=== PATIENT | female | born 1930 | race Caucasian/White ===

== ENCOUNTER 2017-07-01 11:18 | Emergency (ER) | payer MEDICARE, MEDICAID ==
--- NOTE | 2017-07-01 11:39 | ER Document Report ---
ED Medical Screen (RME) - General Chief Complaint: Mouth Injury Stated Complaint: FALL / LIP LACERATION Time Seen by Provider: 07/01/17 11:37 Notes: RME DISCLOSURE I have seen this patient as part of a Rapid Medical Evaluation and, if applicable, placed any initially appropriate orders. The patient will be seen and fully evaluated, including a full history and physical exam, by a provider ( in Main ED or Fast Track) when a room becomes available. 86-year-old female here with complaints of fall that occurred just prior to arrival. She states that she tripped on something and fell forward hitting her face. She had loss of consciousness for 2 minutes. Her tetanus is up-to-date. She complains of pain to her mouth and her left hand. TRAVEL OUTSIDE OF THE [place] IN LAST 30 DAYS: No - Related Data Allergies/Adverse Reactions: Sulfa (Sulfonamide Antibiotics) Allergy (Verified 07/01/17 11:20) tape Allergy (Intermediate, Uncoded 07/01/17 11:20) Past Medical History - Past Medical History Cardiac Medical History: Reports: Hx Hypertension Denies: Hx Coronary Artery Disease, Hx Heart Attack Pulmonary Medical History: Reports: Hx Asthma, Hx Bronchitis Denies: Hx COPD, Hx Pneumonia Neurological Medical History: Denies: Hx Cerebrovascular Accident, Hx Seizures Renal/ Medical History: Denies: Hx Peritoneal Dialysis GI Medical History: Reports: Hx Gastroesophageal Reflux Disease, Hx Hiatal Hernia Musculoskeltal Medical History: Reports Hx Arthritis - Back Past Surgical History: Reports: Hx Appendectomy. Denies: Hx Hysterectomy, Hx Pacemaker - Immunizations Hx Diphtheria, Pertussis, Tetanus Vaccination: No Physical Exam - Vital signs Vitals: Pulse Resp BP Pulse Ox 113 H 16 164/87 H 96 07/01/17 11:22 07/01/17 11:22 07/01/17 11:22 07/01/17 11:22 Course - Vital Signs Vital signs: Temp Pulse Resp BP Pulse Ox 113 H 16 164/87 H 96 07/01/17 11:22 07/01/17 11:22 07/01/17 11:22 07/01/17 11:22
--- NOTE | 2017-07-01 12:08 | RADIOLOGY REPORT (SQ) ---
EXAM DESCRIPTION: CT HEAD WITHOUT COMPLETED DATE/TIME: 07/01/2017 11:56 am REASON FOR STUDY: s/p fall w LOC 2 min COMPARISON: None. TECHNIQUE: Axial images acquired through the brain without intravenous contrast. Images reviewed wi th bone, brain and subdural windows. Images stored on PACS. All CT scanners at this facility use dose modulation, iterative reconstruction, and/or weight based d osing when appropriate to reduce radiation dose to as low as reasonably achievable (ALARA). [facility]: Dose Right [facility]: CareDose [facility]: Dose Right [facility]: Teradose 4D [facility]: Azimuth RADIATION DOSE: CT Rad equipment meets quality standard of care and radiation dose reduction techniq ues were employed. CTDIvol: 64.6 mGy. DLP: 1163 mGy-cm. mGy. LIMITATIONS: None. FINDINGS: VENTRICLES: Prominent. CEREBRUM: No masses. No hemorrhage. No midline shift. Areas of low density in the white matter mos t likely due to chronic micro-vascular ischemic change. No evidence for acute infarction. CEREBELLUM: No masses. No hemorrhage. No alteration of density. No evidence for acute infarction. EXTRAAXIAL SPACES: Mild age-related involutional change. No fluid collections. No masses. ORBITS AND GLOBE: No intra- or extraconal masses. Normal contour of globe without masses. CALVARIUM: No fracture. PARANASAL SINUSES: No fluid or mucosal thickening. SOFT TISSUES: No mass or hematoma. OTHER: No other significant finding. IMPRESSION: MILD CHRONIC CHANGES OF ATROPHY AND MICROVASCULAR ISCHEMIA. NO ACUTE PROCESS. EVIDENCE OF ACUTE STROKE: NO. TECHNICAL DOCUMENTATION: JOB ID: [id number] Quality ID # [id number]: Final reports with documentation of one or more dose reduction techniques (e.g., Au tomated exposure control, adjustment of the mA and/or kV according to patient size, use of iterative reconstruction technique) 2010 [employer]- All Rights Reserved Reading location - IP/workstation name: [email or web address]
--- NOTE | 2017-07-01 12:19 | RADIOLOGY REPORT (SQ) ---
EXAM DESCRIPTION: CT FACIAL AREA WITHOUT COMPLETED DATE/TIME: 07/01/2017 11:56 am REASON FOR STUDY: s/p fall; eval fracture COMPARISON: None. TECHNIQUE: Noncontrasted images through the facial bones and orbits windowed for bone and soft tissu e. Additional coronal and sagittal reconstructed images reviewed. All images stored on PACS. All CT scanners at this facility use dose modulation, iterative reconstruction, and/or weight based d osing when appropriate to reduce radiation dose to as low as reasonably achievable (ALARA). [facility]: Dose Right [facility]: CareDose [facility]: Dose Right [facility]: Teradose 4D [facility]: Smart [employer] RADIATION DOSE: CT Rad equipment meets quality standard of care and radiation dose reduction techniq ues were employed. CTDIvol: 30.4 mGy. DLP: 600 mGy-cm. mGy. LIMITATIONS: None. FINDINGS: FACIAL BONES: No fracture or bone lesion. ORBITS: Intact. No fracture. Symmetric intact globes and retroorbital soft tissues. PARANASAL SINUSES: Clear. No significant mucosal thickening, mass or fluid. No nasal polyps. Maxill evette sinus outlets are patent. SOFT TISSUES: No mass or edema. INFERIOR BRAIN: Limited view. No acute findings. OTHER: No other significant finding. IMPRESSION: No significant posttraumatic changes are identified. Other findings as noted above TECHNICAL DOCUMENTATION: JOB ID: [id number] Quality ID # [id number]: Final reports with documentation of one or more dose reduction techniques (e.g., Au tomated exposure control, adjustment of the mA and/or kV according to patient size, use of iterative reconstruction technique) 2010 [employer] All Rights Reserved Reading location - IP/workstation name: [email or web address]
[2017-07-01] MEDS ORDERED: LIDOCAINE 1% INJ-PF (10 MG/ML) 30 ML SDV INJ ONE (12:34)
--- NOTE | 2017-07-01 12:41 | RADIOLOGY REPORT (SQ) ---
EXAM DESCRIPTION: HAND LEFT 3 VIEWS COMPLETED DATE/TIME: 07/01/2017 12:17 pm REASON FOR STUDY: s/p fall; eval fracture COMPARISON: None. EXAM PARAMETERS: NUMBER OF VIEWS: Three views. TECHNIQUE: AP, lateral and oblique radiographic images acquired of the left hand. LIMITATIONS: None. FINDINGS: MINERALIZATION: Bony structures are somewhat osteopenic. BONES: No acute fracture or dislocation. No worrisome bone lesions. JOINTS: No effusions. SOFT TISSUES: No soft tissue swelling. No foreign body. OTHER: No other significant finding. IMPRESSION: NEGATIVE STUDY OF THE LEFT HAND. NO RADIOGRAPHIC EVIDENCE OF ACUTE INJURY. TECHNICAL DOCUMENTATION: JOB ID: [id number] [employer]- All Rights Reserved Reading location - IP/workstation name: [email or web address]
--- NOTE | 2017-07-01 14:05 | ER Document Report ---
ED Oral Problem - General Chief Complaint: Mouth Injury Stated Complaint: FALL / LIP LACERATION Time Seen by Provider: 07/01/17 11:37 Mode of Arrival: Ambulatory Information source: Patient Notes: Patient is an 86-year-old female who presents to the ER today for lip laceration , left hand pain to the fourth and fifth fingers, bruising to the face after tripping over something, falling while going into the grocery store just prior to arrival on sidewalk. Patient states that she broke her front teeth and that she thinks that is what cut her upper lip. Bleeding is controlled, with patient holding light gauze to the area. She did not lose consciousness. Patient denies being on any blood thinners. TRAVEL OUTSIDE OF THE [place] IN LAST 30 DAYS: No - Related Data Allergies/Adverse Reactions: Sulfa (Sulfonamide Antibiotics) Allergy (Verified 07/01/17 11:20) tape Allergy (Intermediate, Uncoded 07/01/17 11:20) Past Medical History - General Information source: Patient - Social History Smoking Status: Never Smoker Family History: Reviewed & Not Pertinent Patient has suicidal ideation: No Patient has homicidal ideation: No - Past Medical History Cardiac Medical History: Reports: Hx Hypertension Denies: Hx Coronary Artery Disease, Hx Heart Attack Pulmonary Medical History: Reports: Hx Asthma, Hx Bronchitis Denies: Hx COPD, Hx Pneumonia Neurological Medical History: Denies: Hx Cerebrovascular Accident, Hx Seizures Renal/ Medical History: Denies: Hx Peritoneal Dialysis GI Medical History: Reports: Hx Gastroesophageal Reflux Disease, Hx Hiatal Hernia Musculoskeltal Medical History: Reports Hx Arthritis - Back Past Surgical History: Reports: Hx Appendectomy, Hx Cardiac Surgery - Stents x2 , Hx Genitourinary Surgery - Bladder tact. Denies: Hx Hysterectomy, Hx Pacemaker - Immunizations Hx Diphtheria, Pertussis, Tetanus Vaccination: No Review of Systems - Review of Systems Constitutional: No symptoms reported EENT: No symptoms reported Cardiovascular: No symptoms reported Respiratory: No symptoms reported Gastrointestinal: No symptoms reported Genitourinary: No symptoms reported Female Genitourinary: No symptoms reported Musculoskeletal: No symptoms reported Skin: See HPI Hematologic/Lymphatic: No symptoms reported Neurological/Psychological: No symptoms reported Physical Exam - Vital signs Vitals: Pulse Resp BP Pulse Ox 113 H 16 164/87 H 96 07/01/17 11:22 07/01/17 11:22 07/01/17 11:22 07/01/17 11:22 - Notes Notes: PHYSICAL EXAMINATION: GENERAL: Uncomfortable appearing, anxious appearing, but in no acute distress. HEAD: Ecchymosis to left chin, left upper lip, normocephalic. EYES: Pupils equal round and reactive to light, extraocular movements intact, sclera anicteric, conjunctiva are normal. ENT: See skin below, 3 cm lip laceration, missing upper front teeth NECK: Normal range of motion, supple without lymphadenopathy LUNGS: CTAB and equal. No wheezes rales or rhonchi. HEART: Regular rate and rhythm without murmurs EXTREMITIES: tender to left fourth and fifth digits on left hand, normal range of motion, no tenderness to the wrist or forearm, no pitting edema. No cyanosis. NEUROLOGICAL: Cranial nerves grossly intact. Normal sensory/motor exams. PSYCH: Normal mood, normal affect. SKIN: Warm, Dry, normal turgor, 3 cm flap of the upper lip hanging, minimal bleeding, ecchymosis to left fourth and fifth digits, volar surface, no obvious swelling, Course - Re-evaluation Re-evalutation: 07/01/17 16:31 Laceration was repaired with dissolvable sutures, patient tolerated well, CT of the head, CT facial bones, left hand x-ray negative for any acute pathology. 07/01/17 16:32 - Vital Signs Vital signs: Temp Pulse Resp BP Pulse Ox 99 18 155/80 H 97 07/01/17 14:46 07/01/17 14:46 07/01/17 14:46 07/01/17 14:46 Procedures - Laceration/Wound Repair Mid- Face Time completed: 13:00 Wound length (cm): 3 Wound's Depth, Shape: Flap Laceration pre-procedure: Sterile PPE donned, Sterile drapes applied, Shur- Clens applied Anesthetic type: 1% Lidocaine Volume Anesthetic (mLs): 5 Wound explored: Clean Irrigated w/ Saline (mLs): 30 Wound Repaired With: Sutures Suture Size/Type: 5:0, Vicryl Number of Sutures: 5 Post-procedure NV exam normal: Yes Complications: No Discharge - Discharge Clinical Impression: Lip laceration Qualifiers: Encounter type: initial encounter Qualified Code(s): S01.511A - Laceration without foreign body of lip, initial encounter Injury of left hand Qualifiers: Encounter type: initial encounter Qualified Code(s): S69.92XA - Unspecified injury of left wrist, hand and finger(s), initial encounter Fall Qualifiers: Encounter type: initial encounter Qualified Code(s): W19.XXXA - Unspecified fall, initial encounter Condition: Stable Disposition: HOME, SELF-CARE Additional Instructions: Return immediately for any new or worsening symptoms. Follow up with primary care provider, call tomorrow to make followup appointment. Prescriptions: Cephalexin [Cephalexin 250 MG Tablet] 1 tab PO BID #10 tablet Oxycodone HCl 5 mg PO Q4 PRN #10 tablet PRN Reason: Referrals: ESTUARDO MEDINA MD [Primary Care Provider] - Follow up as needed
[2017-07-01 14:47] VITALS: BP 155/80
== END 2017-07-01 14:47 | disposition home or self-care (01) ==
LOC: ER 11:18
DX: S02.5XXA Fracture of tooth (traumatic), initial encounter for closed fracture (principal); S01.511A Laceration without foreign body of lip, initial encounter; S60.042A Contusion of left ring finger without damage to nail, initial encounter; S60.052A Contusion of left little finger without damage to nail, initial encounter; M79.645 Pain in left finger(s); W01.0XXA Fall on same level from slipping, tripping and stumbling without subsequent striking against object, initial encounter; Y93.89 Activity, other specified; Y92.480 Sidewalk as the place of occurrence of the external cause; I10 Essential (primary) hypertension; Z88.2 Allergy status to sulfonamides; Z91.048 Other nonmedicinal substance allergy status; J45.909 Unspecified asthma, uncomplicated
CPT/HCPCS: 99284; 73130; 70450; 70486; 12013; J3490

== ENCOUNTER 2018-10-10 18:21 | Emergency (ER) | payer MEDICARE, MEDICAID ==
[2018-10-10] MEDS ORDERED: ONDANSETRON 4 MG TAB.RAPDIS PO ONE (19:39)
--- NOTE | 2018-10-10 19:40 | ER Document Report ---
ED Medical Screen (RME) - General Chief Complaint: Near Syncope Stated Complaint: DIZZY Time Seen by Provider: 10/10/18 19:32 Primary Care Provider: ESTUARDO MEDINA MD [Primary Care Provider] - Follow up as needed Mode of Arrival: Wheelchair Information source: Patient Notes: Patient presents emergency department with complaints of feeling extremely dizzy when she walks. Patient reports that she stays quiet and sitting down she is okay. She reports at around 2:00 she walked in her kitchen became very extremely dizzy. She reports she became nauseated vomited and started sweating. Patient reports she just started taking medication for UTI, Macrobid, yesterday. Patient has history of cardiac disease with 2 stents placed. Patient complains of some nausea currently. Patient speaking in a clear voice respiratory rate even unlabored denies chest pain denies shortness of breath. I have greeted and performed a rapid initial assessment of this patient. A comprehensive ED assessment and evaluation of the patient, analysis of test results and completion of the medical decision making process will be conducted by additional ED providers. Dictation of this chart was performed using voice recognition software; therefore, there may be some unintended grammatical errors. TRAVEL OUTSIDE OF THE [place] IN LAST 30 DAYS: No - Related Data Allergies/Adverse Reactions: Sulfa (Sulfonamide Antibiotics) Allergy (Verified 10/10/18 18:45) tape Allergy (Intermediate, Uncoded 10/10/18 18:45) Past Medical History - Social History Chew tobacco use (# tins/day): No Frequency of alcohol use: None Drug Abuse: None - Past Medical History Cardiac Medical History: Reports: Hx Hypertension Denies: Hx Coronary Artery Disease, Hx Heart Attack Pulmonary Medical History: Reports: Hx Asthma, Hx Bronchitis Denies: Hx COPD, Hx Pneumonia Neurological Medical History: Denies: Hx Cerebrovascular Accident, Hx Seizures Renal/ Medical History: Denies: Hx Peritoneal Dialysis GI Medical History: Reports: Hx Gastroesophageal Reflux Disease, Hx Hiatal Hernia Musculoskeltal Medical History: Reports Hx Arthritis - Back Past Surgical History: Reports: Hx Appendectomy, Hx Cardiac Surgery - Stents x2, Hx Genitourinary Surgery - Bladder tact. Denies: Hx Hysterectomy, Hx Pacemaker - Immunizations Hx Diphtheria, Pertussis, Tetanus Vaccination: No Physical Exam - Vital signs Vitals: Temp Pulse Resp BP Pulse Ox 97.7 F 85 20 168/77 H 94 06/15/19 18:44 10/10/18 18:44 10/10/18 18:44 10/10/18 18:44 10/10/18 18:44 Course - Vital Signs Vital signs: Temp Pulse Resp BP Pulse Ox 97.7 F 85 20 168/77 H 94 10/10/18 18:44 10/10/18 18:44 10/10/18 18:44 10/10/18 18:44 10/10/18 18:44 Doctor's Discharge - Discharge Referrals: ESTUARDO MEDINA MD [Primary Care Provider] - Follow up as needed
--- NOTE | 2018-10-10 20:35 | RADIOLOGY REPORT (SQ) ---
EXAM DESCRIPTION: XR CHEST 2 VIEWS COMPLETED DATE/TME: 10/10/2018 19:38 CLINICAL HISTORY: dizzy, hx CAD COMPARISON: October 25, 2014 FINDINGS: Cardiac silhouette is within normal limits. Patient is rotated. There is atherosclerosis. There is no focal parenchymal or pleural disease. There is no acute osseous process visualized. IMPRESSION: No evidence of acute cardiopulmonary disease.
[2018-10-10 20:51] LABS: ABSOLUTE BASOPHILS # (AUTO) 0.1 10^3/uL (0.0-0.2); ABSOLUTE EOSINOPHILS # (AUTO) 0.2 10^3/uL (0.0-0.6); ABSOLUTE LYMPHOCYTES (AUTO) 1.4 10^3/uL (0.5-4.7); ABSOLUTE MONOCYTES (AUTO) 0.6 10^3/uL (0.1-1.4); ABSOLUTE NEUT (AUTO) 8.4 10^3/uL (1.7-8.2); BASOPHILS % (AUTO) 1.1 % (0-2); EOSINOPHILS % (AUTO) 1.8 % (0-6); HEMATOCRIT 39.2 % (36.0-47.0); HEMOGLOBIN 13.3 g/dL (12.0-15.5); LYMPHOCYTES % (AUTO) 13.2 % (13-45); MEAN CORPUSCULAR HEMOGLOBIN 31.2 pg (27.0-33.4); MEAN CORPUSCULAR HGB CONC 33.8 g/dL (32.0-36.0); MEAN CORPUSCULAR VOLUME 92 fl (80-97); MONOCYTES % (AUTO) 5.6 % (3-13); PLATELET COUNT 221 10^3/uL (150-450); RED BLOOD COUNT 4.25 10^6/uL (3.72-5.28); RED CELL DISTRIBUTION WIDTH 14.9 % (11.5-14.0); SEGMENTED NEUTROPHILS % (AUTO) 78.3 % (42-78); TOTAL CELLS COUNTED % (AUTO) 100 %; WHITE BLOOD COUNT 10.8 10^3/uL (4.0-10.5)
[2018-10-10 21:10] LABS: ALANINE AMINOTRANSFERASE 21 U/L (9-52); ALBUMIN 4.3 g/dL (3.5-5.0); ALKALINE PHOSPHATASE 121 U/L (38-126); ANION GAP 8 (5-19); ASPARTATE AMINO TRANSFERASE 24 U/L (14-36); BILIRUBIN,DIRECT 0.1 mg/dL (0.0-0.4); BILIRUBIN,TOTAL 0.3 mg/dL (0.2-1.3); BLOOD UREA NITROGEN 30 mg/dL (7-20); CALCIUM 10.2 mg/dL (8.4-10.2); CARBON DIOXIDE 28 mmol/L (22-30); CHLORIDE 101 mmol/L (98-107); CREATINE KINASE 58 U/L (30-135); GLUCOSE 109 mg/dL (75-110); POTASSIUM 4.5 mmol/L (3.6-5.0); SODIUM 136.8 mmol/L (137-145); TOTAL PROTEIN 6.9 g/dL (6.3-8.2)
[2018-10-10 21:26] LABS: APPEARANCE,URINE CLEAR; BILIRUBIN,URINE NEGATIVE (NEGATIVE); GLUCOSE, URINE NEGATIVE (NEGATIVE); KETONES,URINE NEGATIVE (NEGATIVE); LEUKOCYTE ESTERASE,URINE SMALL (NEGATIVE); NITRITE,URINE POSITIVE (NEGATIVE); PROTEIN,URINE NEGATIVE (NEGATIVE); URINE SPECIFIC GRAVITY 1.013
[2018-10-10 21:32] LABS: COLOR,URINE DARK YELLOW
--- NOTE | 2018-10-10 23:12 | EKG REPORT ---
SEVERITY:- ABNORMAL ECG - SINUS RHYTHM RBBB AND LPFB : Confirmed by: Kulwinder Cantrell MD 10-Oct-2018 23:11:51
[2018-10-10] MEDS ORDERED: NORMAL SALINE 1000 ML 1,000 ML IV ONE (23:41)
--- NOTE | 2018-10-11 00:25 | RADIOLOGY REPORT (SQ) ---
EXAM DESCRIPTION: CT ABDOMEN PELVIS WITH IV CONTRAST COMPLETED DATE/TME: 10/10/2018 23:41 CLINICAL HISTORY: vomiting, upper ab pain COMPARISON: None Available. TECHNIQUE: CT of the abdomen and pelvis performed following IV administration of 73 mL of Omnipaque 350. DLP: 766.67 mGycm FINDINGS: Lung Bases: Minimal right basilar opacity may represent dependent atelectasis. Bones: Degenerative change of the spine. Abdomen: Liver: The liver has normal size and density. No intrahepatic mass or biliary dilatation. Gallbladder: No calcified gallstones. Spleen, Pancreas, and Adrenal Glands: The spleen, pancreas, and adrenal glands are unremarkable. Kidneys: The kidneys have normal size and contour without evidence of solid mass or hydronephrosis. Vasculature: Aortoiliac atherosclerosis. There is a 2.8 cm infrarenal abdominal aortic aneurysm. The portal vein is patent. The proximal visceral and renal arteries are patent. Stomach: Moderate hiatal hernia. Other: No free intraperitoneal air. No free fluid or lymphadenopathy. Pelvis: Bladder: Urinary bladder is unremarkable. Bowel: No dilated loops of large or small bowel. Scattered diverticula of the colon. Appendix: Not identified. Pelvis: Small bilateral fat-containing inguinal hernias. Prior hysterectomy. IMPRESSION: 1. No acute inflammatory or obstructive process identified. 2. Moderate hiatal hernia. 3. There is a 2.8 cm abdominal aortic aneurysm. Recommend follow-up every 5 years. Reference: J Am Nader Radiol 2013;10:789-794. This exam was performed according to our departmental dose-optimization program, which includes automated exposure control, adjustment of the mA and/or kV according to patient size and/or use of iterative reconstruction technique.
--- NOTE | 2018-10-11 01:12 | ER Document Report ---
ED General - General Chief Complaint: Near Syncope Stated Complaint: DIZZY Time Seen by Provider: 10/10/18 19:32 Primary Care Provider: ESTUARDO MEDINA MD [Primary Care Provider] - Follow up as needed Mode of Arrival: Wheelchair Notes: Patient is an 87-year-old female with a past medical history of hypertension, coronary artery disease, presents with complaints of dizziness, lightheadedness and multiple episodes of vomiting. Symptoms started shortly after waking up from a nap at approximately 2 PM today. Patient states that the symptoms were abrupt in onset, severe in intensity and have eased off since that time. No obvious exacerbating or alleviating factors. Denies a history of similar symptoms in the past. Attributes her symptoms to a urinary tract infection stating that she began feeling she was having some frequent urination and dysuria last evening so she started on Macrobid which is prescribed by her urologist to take as needed for urinary tract infections. She denies fever. Denies chest pain or shortness of breath. She has not seen her primary doctor regarding today's concerns. TRAVEL OUTSIDE OF THE [place] IN LAST 30 DAYS: No - Related Data Allergies/Adverse Reactions: Sulfa (Sulfonamide Antibiotics) Allergy (Verified 10/10/18 18:45) tape Allergy (Intermediate, Uncoded 10/10/18 18:45) Past Medical History - General Information source: Patient - Social History Smoking Status: Never Smoker Chew tobacco use (# tins/day): No Frequency of alcohol use: None Drug Abuse: None Lives with: Alone Family History: Reviewed & Not Pertinent Patient has suicidal ideation: No Patient has homicidal ideation: No - Past Medical History Cardiac Medical History: Reports: Hx Hypertension Denies: Hx Coronary Artery Disease, Hx Heart Attack Pulmonary Medical History: Reports: Hx Asthma, Hx Bronchitis Denies: Hx COPD, Hx Pneumonia Neurological Medical History: Denies: Hx Cerebrovascular Accident, Hx Seizures Renal/ Medical History: Denies: Hx Peritoneal Dialysis GI Medical History: Reports: Hx Gastroesophageal Reflux Disease, Hx Hiatal Hernia Musculoskeletal Medical History: Reports Hx Arthritis - Back Past Surgical History: Reports: Hx Appendectomy, Hx Cardiac Surgery - Stents x2, Hx Genitourinary Surgery - Bladder tact. Denies: Hx Hysterectomy, Hx Pacemaker - Immunizations Hx Diphtheria, Pertussis, Tetanus Vaccination: No Review of Systems - Review of Systems Notes: Constitutional: Negative for fever. HENT: Negative for sore throat. Eyes: Negative for visual changes. Cardiovascular: Negative for chest pain. Positive for lightheadedness Respiratory: Negative for shortness of breath. Gastrointestinal: Negative for abdominal pain, positive for vomiting Genitourinary: Negative for dysuria. Musculoskeletal: Negative for back pain. Skin: Negative for rash. Neurological: Negative for headaches, weakness or numbness. 10 point ROS negative except as marked above and in HPI. Physical Exam - Vital signs Vitals: Temp Pulse Resp BP Pulse Ox 97.7 F 85 20 168/77 H 94 10/10/18 18:44 10/10/18 18:44 10/10/18 18:44 10/10/18 18:44 10/10/18 18:44 Interpretation: Hypertensive Notes: PHYSICAL EXAMINATION: GENERAL: Well-appearing, well-nourished and in no acute distress. HEAD: Atraumatic, normocephalic. EYES: Pupils equal round and reactive to light, extraocular movements intact, sclera anicteric, conjunctiva are normal. ENT: nares patent, oropharynx clear without exudates. Moderately dry mucous membranes. NECK: Normal range of motion, supple without lymphadenopathy LUNGS: Breath sounds clear to auscultation bilaterally and equal. No wheezes rales or rhonchi. HEART: Regular rate and rhythm without murmurs ABDOMEN: Soft, mild focal epigastric abdominal tenderness, no other localized areas of tenderness normoactive bowel sounds. No guarding, no rebound. No masses appreciated. EXTREMITIES: Normal range of motion, no pitting or edema. No cyanosis. NEUROLOGICAL: Face symmetric. Tongue protrudes midline. Extraocular motions intact. Pupils are 2 mm and equally reactive. Normal speech, normal gait. 5 out of 5 strength in both the distal and proximal upper and lower extremities bilaterally. Sensation is grossly intact throughout. Finger to nose testing normal. Pronator drift normal. PSYCH: Normal mood, normal affect. SKIN: Warm, Dry, normal turgor, no rashes or lesions noted. Course - Re-evaluation Re-evalutation: 10/11/18 01:11 Patient presents with an episode of dizziness and/or lightheadedness that was associated with nausea and vomiting. Started earlier today after she woke up from a nap. Currently asymptomatic. On exam she had some mild epigastric abdominal tenderness otherwise unremarkable exam. No focal neurologic deficits. Vitals within acceptable limits with beyond mild hypertension. [address] scan of the abdomen pelvis without any acute findings. Patient informed of abdominal aortic aneurysm and need for monitoring. Has tolerated oral intake without difficulty. Urine is not noted to show infection although could be falsely sterile as patient did start Macrobid 2 days ago on her own when she thought she was beginning to develop an infection. I have advised her to continue this antibiotic regiment. At this time will discharge with return precautions and follow-up recommendations. Verbal discharge instructions given a the bedside and opportunity for questions given. Medication warnings reviewed. Patient is in agreement with this plan and has verbalized understanding of return precautions and the need for primary care follow-up in the next 24-72 hours. - Vital Signs Vital signs: Temp Pulse Resp BP Pulse Ox 98.1 F 102 H 20 172/101 H 96 10/11/18 01:38 10/11/18 01:38 10/10/18 18:44 10/11/18 01:38 10/11/18 01:38 - Laboratory Result Diagrams: 10/10/18 20:40 10/10/18 20:40 Laboratory results interpreted by me: 10/10/18 10/10/18 10/10/18 20:25 20:40 20:40 WBC 10.8 H RDW 14.9 H Seg Neutrophils % 78.3 H Absolute Neutrophils 8.4 H Sodium 136.8 L BUN 30 H Est GFR ( Amer) 53 L Est GFR (Non-Af Amer) 44 L Urine Blood SMALL H Urine Nitrite POSITIVE H Urine Urobilinogen 2.0 H Ur Leukocyte Esterase SMALL H - Diagnostic Test Radiology reviewed: Image reviewed, Reports reviewed Radiology results interpreted by me: 10/11/18 01:12 Chest x-ray: No acute infiltrate or pneumothorax - EKG Interpretation by Me Additional EKG results interpreted by me: 10/11/18 01:12 Sinus rhythm, rate 89. No ST elevations or depressions. QTC 468. Right bundle branch block present. Unchanged from previous exam. Discharge - Discharge Clinical Impression: Dysuria, Upper abdominal pain Nausea and vomiting Qualifiers: Vomiting type: unspecified Vomiting Intractability: non-intractable Qualified Code(s): R11.2 - Nausea with vomiting, unspecified Condition: Good Disposition: HOME, SELF-CARE Additional Instructions: The CT scan does not show any acute findings. Your labs are otherwise normal today. Please continue taking the antibiotics that your doctor prescribed you for when you get urinary tract infections. Return if you have recurrent episode s of lightheadedness, vomiting, chest pain, or any other symptoms that are worrisome to you. Referrals: ESTUARDO MEDINA MD [Primary Care Provider] - Follow up as needed
[2018-10-11 01:48] VITALS: BP 172/101
== END 2018-10-11 01:48 | disposition home or self-care (01) ==
LOC: ER 18:21
DX: R11.2 Nausea with vomiting, unspecified (principal); R30.0 Dysuria; R10.10 Upper abdominal pain, unspecified; R42 Dizziness and giddiness; I25.10 Atherosclerotic heart disease of native coronary artery without angina pectoris; I10 Essential (primary) hypertension; J45.909 Unspecified asthma, uncomplicated
CPT/HCPCS: 93005; 99284; 36415; 82550; 85025; 80053; 81001; 84484; 71046; 74177; 93010; A9270; J7030; S0119

== ENCOUNTER 2018-10-12 20:17 | Emergency (ER) | payer MEDICARE, MEDICAID ==
--- NOTE | 2018-10-12 21:18 | ER Document Report ---
ED Medical Screen (RME) - General Stated Complaint: HIGH BLOOD PRESSURE Time Seen by Provider: 10/12/18 21:15 Primary Care Provider: ESTUARDO MEDINA MD [Primary Care Provider] - Follow up as needed Notes: Patient presents emergency department with complaints of a urinary tract infection high blood pressure. Reports she cannot urinate. She was here on Friday for same symptoms. Patient reports she cannot urinate but she did void. Patient reports pain is now 3 out of 5. I have greeted and performed a rapid initial assessment of this patient. A comprehensive ED assessment and evaluation of the patient, analysis of test results and completion of the medical decision making process will be conducted by additional ED providers. Dictation of this chart was performed using voice recognition software; therefore, there may be some unintended grammatical errors. TRAVEL OUTSIDE OF THE [place] IN LAST 30 DAYS: No - Related Data Allergies/Adverse Reactions: Sulfa (Sulfonamide Antibiotics) Allergy (Verified 10/10/18 18:45) tape Allergy (Intermediate, Uncoded 10/10/18 18:45) Past Medical History - Past Medical History Cardiac Medical History: Reports: Hx Hypertension Denies: Hx Coronary Artery Disease, Hx Heart Attack Pulmonary Medical History: Reports: Hx Asthma, Hx Bronchitis Denies: Hx COPD, Hx Pneumonia Neurological Medical History: Denies: Hx Cerebrovascular Accident, Hx Seizures Renal/ Medical History: Denies: Hx Peritoneal Dialysis GI Medical History: Reports: Hx Gastroesophageal Reflux Disease, Hx Hiatal Hernia Musculoskeltal Medical History: Reports Hx Arthritis - Back Past Surgical History: Reports: Hx Appendectomy, Hx Cardiac Surgery - Stents x2, Hx Genitourinary Surgery - Bladder tact. Denies: Hx Hysterectomy, Hx Pacemaker - Immunizations Hx Diphtheria, Pertussis, Tetanus Vaccination: No Doctor's Discharge - Discharge Referrals: ESTUARDO MEDINA MD [Primary Care Provider] - Follow up as needed
[2018-10-13 01:44] LABS: APPEARANCE,URINE CLEAR; BILIRUBIN,URINE NEGATIVE (NEGATIVE); GLUCOSE, URINE NEGATIVE (NEGATIVE); KETONES,URINE 20 mg/dL (NEGATIVE); LEUKOCYTE ESTERASE,URINE NEGATIVE (NEGATIVE); NITRITE,URINE POSITIVE (NEGATIVE); PROTEIN,URINE NEGATIVE (NEGATIVE); URINE SPECIFIC GRAVITY 1.006
[2018-10-13 01:46] LABS: COLOR,URINE DARK YELLOW
[2018-10-13 02:56] LABS: ABSOLUTE BASOPHILS # (AUTO) 0.1 10^3/uL (0.0-0.2); ABSOLUTE EOSINOPHILS # (AUTO) 0.1 10^3/uL (0.0-0.6); ABSOLUTE LYMPHOCYTES (AUTO) 2.3 10^3/uL (0.5-4.7); ABSOLUTE MONOCYTES (AUTO) 0.6 10^3/uL (0.1-1.4); ABSOLUTE NEUT (AUTO) 6.8 10^3/uL (1.7-8.2); BASOPHILS % (AUTO) 0.9 % (0-2); HEMATOCRIT 40.1 % (36.0-47.0); HEMOGLOBIN 13.6 g/dL (12.0-15.5); LYMPHOCYTES % (AUTO) 23.1 % (13-45); MEAN CORPUSCULAR HEMOGLOBIN 30.6 pg (27.0-33.4); MEAN CORPUSCULAR HGB CONC 33.9 g/dL (32.0-36.0); MEAN CORPUSCULAR VOLUME 90 fl (80-97); MONOCYTES % (AUTO) 6.4 % (3-13); PLATELET COUNT 232 10^3/uL (150-450); RED BLOOD COUNT 4.44 10^6/uL (3.72-5.28); RED CELL DISTRIBUTION WIDTH 14.3 % (11.5-14.0); SEGMENTED NEUTROPHILS % (AUTO) 68.6 % (42-78); TOTAL CELLS COUNTED % (AUTO) 100 %
[2018-10-13 03:13] LABS: ALANINE AMINOTRANSFERASE 23 U/L (9-52); ALBUMIN 4.5 g/dL (3.5-5.0); ALKALINE PHOSPHATASE 89 U/L (38-126); ANION GAP 10 (5-19); ASPARTATE AMINO TRANSFERASE 25 U/L (14-36); BILIRUBIN,TOTAL 0.9 mg/dL (0.2-1.3); BLOOD UREA NITROGEN 15 mg/dL (7-20); CALCIUM 10.4 mg/dL (8.4-10.2); CARBON DIOXIDE 27 mmol/L (22-30); CHLORIDE 95 mmol/L (98-107); GLUCOSE 105 mg/dL (75-110); POTASSIUM 3.9 mmol/L (3.6-5.0); SODIUM 132.1 mmol/L (137-145); TOTAL PROTEIN 7.2 g/dL (6.3-8.2)
[2018-10-13] MEDS ORDERED: CEPHALEXIN 500 MG CAPSULE PO ONE (04:15)
[2018-10-13] MEDS ORDERED: HYDRALAZINE HCL 10 MG TABLET PO ONE (04:15)
--- NOTE | 2018-10-13 04:21 | ER Document Report ---
ED General - General Chief Complaint: Blood Pressure Problem Stated Complaint: HIGH BLOOD PRESSURE Time Seen by Provider: 10/12/18 21:15 Primary Care Provider: ESTUARDO MEDINA MD [Primary Care Provider] - Follow up tomorrow Notes: Patient is a pleasant 87-year-old female who presents with complaint of continued dysuria and urinary urgency and frequency. She does have a history of recurrent UTIs. She is currently on nitrofurantoin for this. She was seen here a few days ago by Dr. Dhillon and had a full work-up which did not show any concerning findings. She was encouraged to continue take the nitrofurantoin. Patient says that her urinary urgency seems to have worsened therefore she is come to the ER. She is also notes her blood pressures been running high but she also admits that she has been stressed from this infection and is worried that is not improving. She says she was told by her house worker general, Dr. Quigley, that if her blood pressures are very high that she should return to ER. She denies any chest pain, no abdominal pain other than some suprapubic tenderness, no focal weakness or numbness into extremities, no headache. No recent fevers. No other complaints at this time. Her primary care doctor is Dr. Medina. Her urologist is Dr. Palomares. TRAVEL OUTSIDE OF THE [place] IN LAST 30 DAYS: No - Related Data Allergies/Adverse Reactions: Sulfa (Sulfonamide Antibiotics) Allergy (Verified 10/10/18 18:45) tape Allergy (Intermediate, Uncoded 10/10/18 18:45) Past Medical History - Social History Smoking Status: Never Smoker Chew tobacco use (# tins/day): No Frequency of alcohol use: None Drug Abuse: None Family History: Reviewed & Not Pertinent Patient has suicidal ideation: No Patient has homicidal ideation: No - Past Medical History Cardiac Medical History: Reports: Hx Hypertension Denies: Hx Coronary Artery Disease, Hx Heart Attack Pulmonary Medical History: Reports: Hx Asthma, Hx Bronchitis Denies: Hx COPD, Hx Pneumonia Neurological Medical History: Denies: Hx Cerebrovascular Accident, Hx Seizures Renal/ Medical History: Denies: Hx Peritoneal Dialysis GI Medical History: Reports: Hx Gastroesophageal Reflux Disease, Hx Hiatal Hernia Musculoskeletal Medical History: Reports Hx Arthritis - Back Past Surgical History: Reports: Hx Appendectomy, Hx Cardiac Surgery - Stents x2, Hx Genitourinary Surgery - Bladder tact. Denies: Hx Hysterectomy, Hx Pacemaker - Immunizations Hx Diphtheria, Pertussis, Tetanus Vaccination: No Review of Systems - Review of Systems Notes: My Normal Review Basic REVIEW OF SYSTEMS: CONSTITUTIONAL : Denies fever, chills, or sweats. Denies recent illness. EENT: Denies eye, ear, throat, or mouth pain or symptoms. Denies nasal or sinus congestion. CARDIOVASCULAR: Denies chest pain. RESPIRATORY: Denies cough, cold, or chest congestion. Denies shortness of breath, difficulty breathing, or wheezing. GASTROINTESTINAL: suprapubic abdominal pain. Nausea. GENITOURINARY: Dysuria and urinary frequency MUSCULOSKELETAL: Denies neck or back pain or joint pain or swelling. SKIN: Denies rash or skin lesions. NEUROLOGICAL: Denies altered mental status or loss of consciousness. Denies headache. Denies weakness or paralysis or loss of use of either side. Denies problems with gait or speech. Denies sensory or motor loss. ALL OTHER SYSTEMS REVIEWED AND NEGATIVE. Physical Exam - Vital signs Vitals: Temp Pulse Resp BP Pulse Ox 97.6 F 99 16 187/94 H 94 10/12/18 21:22 10/12/18 21:22 10/12/18 21:22 10/12/18 21:22 10/12/18 21:22 - Notes Notes: General Appearance: Well nourished, alert, cooperative, no acute distress, no obvious discomfort. Well-appearing. Vitals: reviewed, See vital signs table. Eyes: PERRL, EOMI, Conjuctiva clear Mouth: No decreasd moisture Lungs: No wheezing, No rales, No rhonci, No accessory muscle use, good air exchange bilaterally. Heart: Normal rate, Regular rythm, No murmur, no rub Abdomen: Normal BS, soft, No rigidity, mild suprapubic abdominal tenderness to palpation, No guarding, no rebound, no abdominal masses, no organomegaly Extremities: strength 5/5 in all extremities, good pulses in all extremities, no swelling or tenderness in the extremities, no edema. Skin: warm, dry, appropriate color, no rash Neuro: speech clear, oriented x 3, normal affect, responds appropriately to questions. symmetric facial movement. Patient moves all 4 extremities without difficulty. Distal sensation intact. Course - Re-evaluation Re-evalutation: 10/13/18 04:19 Patient does have hypertension. She does not have concerning findings or symptoms within that she does not have chest pain or shortness of breath. She does have a history of coronary disease and she says that her house worker general wants to make sure there blood pressure is well controlled. Sounds as if her blood pressure has been running high since she has had the recent infection and she obviously distressed from this which I think is contributing to her high blood pressure. Seems as if her blood pressure runs higher at nighttime. In reviewing her medications it appears that she takes all her blood pressure pressure medications in the morning. I will add a small dose of hydralazine for her to take at night to try to get better control of her blood pressure in the evening times until her infection resolves. Her urinalysis does not show any concerning findings other than positive nitrites. This in conjunction with the fact that she is still having symptoms of urinary urgency and burning suggest to me that she is the antibiotic she is on is only partially treating the infection. I will place her on Keflex. I told her to stop taking nitrofurantoin. I will have her follow-up with her doctor in the next 1 to 2 days. I strongly encouraged her return to ER immediately if she has chest pain, difficulty breathing, fevers, abdominal pain that is worsening, or she feels she is worsening in any way. Patient agrees with plan and will be discharged home. Dictation of this chart was performed using voice recognition software; ther efore, there may be some unintended grammatical errors. 10/13/18 04:21 10/13/18 04:21 - Vital Signs Vital signs: Temp Pulse Resp BP Pulse Ox 98.4 F 84 16 188/94 H 95 10/13/18 05:02 10/13/18 05:02 10/13/18 05:02 10/13/18 05:02 10/13/18 02:59 - Laboratory Result Diagrams: 10/13/18 02:37 10/13/18 02:37 Laboratory results interpreted by me: 10/13/18 10/13/18 10/13/18 01:20 02:37 02:37 RDW 14.3 H Sodium 132.1 L Chloride 95 L Est GFR (Non-Af Amer) 53 L Calcium 10.4 H Urine Ketones 20 H Urine Blood SMALL H Urine Nitrite POSITIVE H Urine Urobilinogen 4.0 H Discharge - Discharge Clinical Impression: Dysuria, Hypertension Condition: Good Disposition: HOME, SELF-CARE Additional Instructions: Your symptoms are consistent with that of a urinary tract infection. Your urinalysis today does show that your white blood cells have improved and that the bacteria in your urine has decreased however you still have something called nitrites which is still indicative of infection. This in conjunction with your ongoing symptoms suggests to me that may be the antibiotic you are currently on is only partially treating the infection. I will place you on 3 days of an antibiotic called Keflex. Hopefully this will help resolve the remaining infection. Your blood pressure is high. I suspect this is related to stress in conjunction with the infection. I will add a low-dose of another blood pressure medication to your regimen. I will only prescribe it for next few days as his suspect your blood pressure will improve as your stress improves and your infection gets better. Please have a low threshold to return to ER if you have fevers, recurrent vomiting, chest pain, severe abdominal pain, or if you feel that you are worsening in any way. Please follow-up with your doctor in 1 to 2 days for reevaluation. Prescriptions: RX: Cephalexin Monohydrate [Keflex 500 mg Capsule] 500 mg PO BID 3 Days #6 capsule RX: Hydralazine HCl [Apresoline 10 mg Tablet] 10 mg PO QPM #4 tablet Referrals: ESTUARDO MEDINA MD [Primary Care Provider] - Follow up tomorrow
[2018-10-13 05:04] VITALS: BP 188/94
== END 2018-10-13 05:04 | disposition home or self-care (01) ==
LOC: ER 20:17
DX: N39.0 Urinary tract infection, site not specified (principal); I10 Essential (primary) hypertension; R30.0 Dysuria; R39.15 Urgency of urination; R35.0 Frequency of micturition
CPT/HCPCS: 99283; 36415; 87086; 85025; 80053; 81001; A9270 ×2; J3490

== ENCOUNTER → 2019-01-20 | Outpatient (CLI) | payer MEDICARE, MEDICAID ==
[2019-01-20 11:23] LABS: ABSOLUTE BASOPHILS # (AUTO) 0.1 10^3/uL (0.0-0.2); ABSOLUTE EOSINOPHILS # (AUTO) 0.1 10^3/uL (0.0-0.6); ABSOLUTE LYMPHOCYTES (AUTO) 1.4 10^3/uL (0.5-4.7); ABSOLUTE MONOCYTES (AUTO) 0.4 10^3/uL (0.1-1.4); ABSOLUTE NEUT (AUTO) 5.3 10^3/uL (1.7-8.2); BASOPHILS % (AUTO) 1.1 % (0-2); EOSINOPHILS % (AUTO) 1.4 % (0-6); HEMATOCRIT 38.9 % (36.0-47.0); HEMOGLOBIN 13.2 g/dL (12.0-15.5); LYMPHOCYTES % (AUTO) 19.5 % (13-45); MEAN CORPUSCULAR HEMOGLOBIN 30.5 pg (27.0-33.4); MEAN CORPUSCULAR VOLUME 90 fl (80-97); MONOCYTES % (AUTO) 5.2 % (3-13); PLATELET COUNT 214 10^3/uL (150-450); RED BLOOD COUNT 4.33 10^6/uL (3.72-5.28); SEGMENTED NEUTROPHILS % (AUTO) 72.8 % (42-78); TOTAL CELLS COUNTED % (AUTO) 100 %; WHITE BLOOD COUNT 7.3 10^3/uL (4.0-10.5)
[2019-01-20 12:01] LABS: ERYTHROCYTE SEDIMENTATION RATE 16 mm/hr (0-30)
--- NOTE | 2019-01-20 12:40 | RADIOLOGY REPORT (SQ) ---
EXAM DESCRIPTION: CT HEAD WITH COMPLETED DATE/TIME: 01/20/2019 10:52 am REASON FOR STUDY: OCULAR PAIN , RIGHT EYE (H57.11), HEADACHE (R51) COMPARISON: None. TECHNIQUE: Axial images acquired through the brain without and with intravenous contrast. Images re viewed with bone, brain, and subdural windows. Additional sagittal and coronal reconstructions were generated. Images stored on PACS. All CT scanners at this facility use dose modulation, iterative reconstruction, and/or weight based d osing when appropriate to reduce radiation dose to as low as reasonably achievable (ALARA). [facility]: Dose Right [facility]: CareDose [facility]: Dose Right [facility]: Teradose 4D [facility]: Datamars CONTRAST TYPE AND DOSE: contrast/concentration: Isovue 350.00 mg/ml; Total Contrast Delivered: 50.0 ml; Total Saline Delivered: 55.0 ml RENAL FUNCTION: Creatinine 1.4 RADIATION DOSE: CT Rad equipment meets quality standard of care and radiation dose reduction techniq ues were employed. CTDIvol: 48.6 - 48.6 mGy. DLP: 1712 mGy-cm. . LIMITATIONS: None. FINDINGS: VENTRICLES: Prominent. CEREBRUM: No masses. No hemorrhage. No midline shift. Areas of low density in the white matter mos t likely due to chronic micro-vascular ischemic change. No evidence for acute infarction. No enhanc ing lesions. CEREBELLUM: No masses. No hemorrhage. No alteration of density. No evidence for acute infarction. No enhancing lesions. EXTRAAXIAL SPACES: Age-related involutional change. No fluid collections. No masses. No enhancing lesions. ORBITS AND GLOBE: No intra- or extraconal masses. Normal contour of globe without masses. CALVARIUM: No fracture. PARANASAL SINUSES: No fluid or mucosal thickening. SOFT TISSUES: No mass or hematoma. OTHER: No other significant finding. IMPRESSION: CHRONIC CHANGES OF ATROPHY AND MICROVASCULAR ISCHEMIA. NO ACUTE PROCESS. NO ENHANCING LESIONS. EVIDENCE OF ACUTE STROKE: NO. TECHNICAL DOCUMENTATION: JOB ID: [id number] Quality ID # [id number]: Final reports with documentation of one or more dose reduction techniques (e.g., Au tomated exposure control, adjustment of the mA and/or kV according to patient size, use of iterative reconstruction technique) 2010 [employer]- All Rights Reserved Reading location - IP/workstation name: [email or web address]
== END ==
LOC: RAD 09:48
PROVIDERS: ATTEND Internal Medicine
DX: H57.11 Ocular pain, right eye (principal); R51 Headache
CPT/HCPCS: 36415; 70460; 82565; 85025; 85652; 86140

== ENCOUNTER 2019-10-26 07:41 | Inpatient (IN) | payer MEDICARE, MEDICAID ==
--- NOTE | 2019-10-26 08:35 | ER Document Report ---
Entered by CARMEN DAVID SCRIBE 10/26/19 0757 Acting as scribe for:RIKKI HENAO MD ED General - General Chief Complaint: Head Injury Stated Complaint: FALL/HEAD INJURY Time Seen by Provider: 10/26/19 07:56 Primary Care Provider: CANDIDO RAJPUT MD [Primary Care Provider] - Follow up as needed Mode of Arrival: Ambulatory Information source: Patient Notes: This 88-year-old female patient presents to the emergency department today with complaints of a fall that occurred just prior to arrival. Patient states she has just generally not felt well the last few days, further described as feeling generally weak. Patient states she does not know why she is falling but she does mention that most of her falls tend to be right after she stands up from sitting. Patient states that her fall today was "harder" than the rest, mentioning that she first landed on her buttocks and then hit the back of her head on the floor. Patient takes 1 baby aspirin daily. The patient went on to state that she was feeling so bad on Friday that she vomi kelli at least twice. TRAVEL OUTSIDE OF THE [place] IN LAST 30 DAYS: No - Related Data Allergies/Adverse Reactions: Sulfa (Sulfonamide Antibiotics) Allergy (Verified 01/20/19 09:35) tape Allergy (Intermediate, Uncoded 01/20/19 09:35) Past Medical History - General Information source: Patient - Social History Smoking Status: Never Smoker Cigarette use (# per day): No Frequency of alcohol use: None Drug Abuse: None Lives with: Alone Family History: Reviewed & Not Pertinent - Past Medical History Cardiac Medical History: Reports: Hx Hypertension Pulmonary Medical History: Reports: Hx Asthma, Hx Bronchitis GI Medical History: Reports: Hx Gastroesophageal Reflux Disease, Hx Hiatal Hernia Musculoskeletal Medical History: Reports Hx Arthritis - Back Past Surgical History: Reports: Hx Appendectomy, Hx Cardiac Surgery - Stents x2, Hx Genitourinary Surgery - Bladder tact - Immunizations Hx Diphtheria, Pertussis, Tetanus Vaccination: No Review of Systems - Review of Systems Constitutional: See HPI, Weakness, Other - fall EENT: No symptoms reported Cardiovascular: No symptoms reported Respiratory: No symptoms reported Gastrointestinal: No symptoms reported Genitourinary: No symptoms reported Female Genitourinary: No symptoms reported Musculoskeletal: See HPI, Muscle pain, Muscle stiffness Skin: No symptoms reported Hematologic/Lymphatic: No symptoms reported Neurological/Psychological: No symptoms reported -: Yes All other systems reviewed and negative Physical Exam - Vital signs Vitals: Temp 98.6 F 10/26/19 07:41 - Notes Notes: Physical Exam: General: Alert, appears well. HEENT: Normocephalic. Large right-central occipital hematoma. PERRL. Extraocular movements intact. Oropharynx clear. Neck: Hard c-collar in place Respiratory: No respiratory distress. Clear and equal breath sounds bilaterally. Cardiovascular: Regular rate and rhythm. Abdominal: Normal Inspection. Non-tender. No distension. Normal Bowel Sounds. Back: No gross abnormalities. Extremities: Moves all four extremities. Upper extremities: Normal inspection. Normal ROM. Lower extremities: Left hip tender to palpate over the greater trochanter. There is no pain on internal and external rotation of the hip.. Neurological: Normal cognition. AAOx4. Normal speech. Psychological: Normal affect. Normal Mood. Skin: Very warm. Dry. Normal color. Course - Vital Signs Vital signs: Temp Pulse Resp BP Pulse Ox 98.6 F 10/26/19 07:41 - Laboratory Result Diagrams: 10/26/19 09:19 10/26/19 09:19 Laboratory results interpreted by me: 10/26/19 10/26/19 10/26/19 09:19 09:19 09:34 WBC 12.8 H Lymph % (Auto) 7.6 L Absolute Neuts (auto) 11.3 H Seg Neutrophils % 87.7 H Sodium 134.8 L BUN 25 H Creatinine 1.31 H Est GFR ( Amer) 46 L Est GFR (MDRD) Non-Af 38 L Glucose 114 H Urine Ketones 20 H Urine Blood SMALL H Urine Nitrite POSITIVE H Ur Leukocyte Esterase LARGE H - Diagnostic Test Radiology reviewed: Image reviewed, Reports reviewed - CT scan of the head shows chronic atrophy and microvascular ischemic changes, there is a large right occipital hematoma. X-ray of the left hip shows possible small avulsion fracture off the greater trochanter. - EKG Interpretation by Me EKG shows normal: Sinus rhythm, Strawberry, Intervals, QRS Complexes, ST-T Waves Rate: Normal - 85 Strawberry/QRS: RBBB, LPHB/LPFB Heart block present: 1st Degree When compared to previous EKG there are: No significant change Discharge - Discharge Clinical Impression: Dehydration Urinary tract infection Qualifiers: Urinary tract infection type: site unspecified Hematuria presence: with hematuria Qualified Code(s): N39.0 - Urinary tract infection, site not specified Falls Qualifiers: Encounter type: initial encounter Qualified Code(s): W19.XXXA - Unspecified fall, initial encounter Hematoma of scalp Qualifiers: Encounter type: initial encounter Qualified Code(s): S00.03XA - Contusion of scalp, initial encounter Closed avulsion fracture of greater trochanter of left femur Qualifiers: Encounter type: initial encounter Qualified Code(s): S72.112A - Displaced fracture of greater trochanter of left femur, initial encounter for closed frac ture Leukocytosis Qualifiers: Leukocytosis type: unspecified Qualified Code(s): D72.829 - Elevated white blood cell count, unspecified Condition: Stable Disposition: ADMITTED INPATIENT Admitting Provider: Aryan (Hospitalist) - Fatou Garay NP is writing orders Unit Admitted: Medical Floor Referrals: CANDIDO RAJPUT MD [Primary Care Provider] - Follow up as needed I personally performed the services described in the documentation, reviewed and edited the documentation which was dictated to the scribe in my presence, and it accurately records my words and actions.
--- NOTE | 2019-10-26 09:01 | RADIOLOGY REPORT (SQ) ---
EXAM DESCRIPTION: HIP LEFT AP/LATERAL IMAGES COMPLETED DATE/TIME: 10/26/2019 8:43 am REASON FOR STUDY: Fall, left hip pain COMPARISON: None. NUMBER OF VIEWS: Two views. TECHNIQUE: AP pelvis and additional frog-leg view of the left hip. LIMITATIONS: None. FINDINGS: MINERALIZATION: Normal. LEFT HIP: There is a lucency along the superior margin of the greater trochanter. No displaced fract ure. RIGHT HIP: No fracture or dislocation. No worrisome bone lesions. PUBIS AND ISCHIUM: No fracture. PELVIS: No fracture. SACRUM: No fracture or dislocation. No worrisome bone lesions. LOWER LUMBAR SPINE: Spondylosis. SOFT TISSUES: No findings. OTHER: No other significant finding. IMPRESSION: Possible avulsion fracture greater trochanter. TECHNICAL DOCUMENTATION: JOB ID: [id number] 2010 [employer]- All Rights Reserved Reading location - IP/workstation name: [email or web address]
[2019-10-26] MEDS ORDERED: ACETAMINOPHEN 325 MG TABLET PO ONE (09:03)
--- NOTE | 2019-10-26 09:18 | RADIOLOGY REPORT (SQ) ---
EXAM DESCRIPTION: CT HEAD WITHOUT IMAGES COMPLETED DATE/TIME: 10/26/2019 8:57 am REASON FOR STUDY: Fall, occipital hematoma COMPARISON: None. TECHNIQUE: Axial images acquired through the brain without intravenous contrast. Images reviewed wi th bone, brain and subdural windows. Additional sagittal and coronal reconstructions were generated. Images stored on PACS. All CT scanners at this facility use dose modulation, iterative reconstruction, and/or weight based d osing when appropriate to reduce radiation dose to as low as reasonably achievable (ALARA). [facility]: Dose Right [facility]: CareDose [facility]: Dose Right [facility]: Teradose 4D [facility]: [place] RADIATION DOSE: CT Rad equipment meets quality standard of care and radiation dose reduction techniq ues were employed. CTDIvol: 53.2 mGy. DLP: 991 mGy-cm.mGy. LIMITATIONS: None. FINDINGS: VENTRICLES: Prominent. CEREBRUM: No masses. No hemorrhage. No midline shift. Areas of low density in the white matter mos t likely due to chronic micro-vascular ischemic change. No evidence for acute infarction. CEREBELLUM: No masses. No hemorrhage. No alteration of density. No evidence for acute infarction. EXTRAAXIAL SPACES: Age-related involutional change. No fluid collections. No masses. ORBITS AND GLOBE: No intra- or extraconal masses. Normal contour of globe without masses. CALVARIUM: No fracture. PARANASAL SINUSES: No fluid or mucosal thickening. SOFT TISSUES: Right occipital scalp hematoma. OTHER: No other significant finding. IMPRESSION: CHRONIC CHANGES OF ATROPHY AND MICROVASCULAR ISCHEMIA. NO ACUTE PROCESS. EVIDENCE OF ACUTE STROKE: NO. TECHNICAL DOCUMENTATION: JOB ID: [id number] Quality ID # [id number]: Final reports with documentation of one or more dose reduction techniques (e.g., Au tomated exposure control, adjustment of the mA and/or kV according to patient size, use of iterative reconstruction technique) 2010 [employer]- All Rights Reserved Reading location - IP/workstation name: [email or web address]
[2019-10-26 09:28] LABS: ABSOLUTE BASOPHILS # (AUTO) 0.1 10^3/uL (0.0-0.2); ABSOLUTE MONOCYTES (AUTO) 0.5 10^3/uL (0.1-1.4); ABSOLUTE NEUT (AUTO) 11.3 10^3/uL (1.7-8.2); BASOPHILS % (AUTO) 0.6 % (0-2); EOSINOPHILS % (AUTO) 0.2 % (0-6); HEMATOCRIT 41.2 % (36.0-47.0); HEMOGLOBIN 13.9 g/dL (12.0-15.5); LYMPHOCYTES % (AUTO) 7.6 % (13-45); MEAN CORPUSCULAR HEMOGLOBIN 30.8 pg (27.0-33.4); MEAN CORPUSCULAR HGB CONC 33.8 g/dL (32.0-36.0); MEAN CORPUSCULAR VOLUME 91 fl (80-97); MONOCYTES % (AUTO) 3.9 % (3-13); PLATELET COUNT 222 10^3/uL (150-450); RED BLOOD COUNT 4.51 10^6/uL (3.72-5.28); RED CELL DISTRIBUTION WIDTH 13.9 % (11.5-14.0); SEGMENTED NEUTROPHILS % (AUTO) 87.7 % (42-78); TOTAL CELLS COUNTED % (AUTO) 100 %; WHITE BLOOD COUNT 12.8 10^3/uL (4.0-10.5)
--- NOTE | 2019-10-26 09:29 | RADIOLOGY REPORT (SQ) ---
EXAM DESCRIPTION: CT CERVICAL SPINE WITHOUT IMAGES COMPLETED DATE/TIME: 10/26/2019 8:57 am REASON FOR STUDY: Fall, head injury COMPARISON: None. TECHNIQUE: Axial images acquired through the cervical spine without intravenous contrast. Images re viewed with lung, soft tissue and bone windows. Reconstructed coronal and sagittal MPR images review ed. Images stored on PACS. All CT scanners at this facility use dose modulation, iterative reconstruction, and/or weight based d osing when appropriate to reduce radiation dose to as low as reasonably achievable (ALARA). [facility]: Dose Right [facility]: CareDose [facility]: Dose Right [facility]: Teradose 4D [facility]: [place] RADIATION DOSE: CT Rad equipment meets quality standard of care and radiation dose reduction techniq ues were employed. CTDIvol: 17.6 mGy. DLP: 326 mGy-cm. mGy. LIMITATIONS: None. FINDINGS: ALIGNMENT: Anatomic. MINERALIZATION: Normal. VERTEBRAL BODIES: No fractures or dislocation. DISCS: Multilevel disc space narrowing with osteophytes. FACETS, LATERAL MASSES, POSTERIOR ELEMENTS: Facet arthropathy. No fractures. No dislocation. No ac terrell findings. HARDWARE: None in the spine. VISUALIZED RIBS: No fractures. LUNG APICES AND SOFT TISSUES: No significant or acute findings. OTHER: No other significant finding. IMPRESSION: CHRONIC DEGENERATIVE CHANGES. NO ACUTE FINDINGS. TECHNICAL DOCUMENTATION: JOB ID: [id number] Quality ID # [id number]: Final reports with documentation of one or more dose reduction techniques (e.g., Au tomated exposure control, adjustment of the mA and/or kV according to patient size, use of iterative reconstruction technique) 2010 [employer]- All Rights Reserved Reading location - IP/workstation name: [email or web address]
[2019-10-26 09:50] LABS: ALBUMIN 4.2 g/dL (3.5-5.0); ALKALINE PHOSPHATASE 93 U/L (38-126); ANION GAP 7 (5-19); ASPARTATE AMINO TRANSFERASE 22 U/L (14-36); BILIRUBIN,TOTAL 0.5 mg/dL (0.2-1.3); BLOOD UREA NITROGEN 25 mg/dL (7-20); CALCIUM 10.1 mg/dL (8.4-10.2); CARBON DIOXIDE 28 mmol/L (22-30); CHLORIDE 100 mmol/L (98-107); CREATINE KINASE 44 U/L (30-135); GLUCOSE 114 mg/dL (75-110); POTASSIUM 4.1 mmol/L (3.6-5.0); TOTAL PROTEIN 6.9 g/dL (6.3-8.2)
[2019-10-26 10:08] LABS: APPEARANCE,URINE SLIGHTLY-CLOUDY; BILIRUBIN,URINE NEGATIVE (NEGATIVE); COLOR,URINE YELLOW; GLUCOSE, URINE NEGATIVE (NEGATIVE); KETONES,URINE 20 mg/dL (NEGATIVE); LEUKOCYTE ESTERASE,URINE LARGE (NEGATIVE); NITRITE,URINE POSITIVE (NEGATIVE); PROTEIN,URINE NEGATIVE (NEGATIVE); URINE SPECIFIC GRAVITY 1.014; UROBILINOGEN,URINE NEGATIVE mg/dL (<2.0)
[2019-10-26] MEDS ORDERED: CEFTRIAXONE 1 GM/D5W RTU 1 GM/50 ML RTUPB IV ONE (10:20)
[2019-10-26] MEDS ORDERED: NORMAL SALINE 1000 ML 1,000 ML IV ONE (10:38)
[2019-10-26] MEDS ORDERED: ACETAMINOPHEN 325 MG TABLET PO PRN (12:00)
[2019-10-26] MEDS ORDERED: ALBUTEROL SULFATE 0.083% NEB 2.5 MG/3 ML AMPUL NEB PRN (12:00)
[2019-10-26] MEDS ORDERED: PROMETHAZINE HCL INJ 25 MG/1 ML VIAL IV PRN (12:00)
--- NOTE | 2019-10-26 14:41 | EKG REPORT ---
SEVERITY:- ABNORMAL ECG - SINUS RHYTHM FIRST DEGREE AV BLOCK RBBB AND LPFB : Confirmed by: Linda Cheema MD 26-Oct-2019 14:40:58
[2019-10-26] MEDS: HEPARIN SOD (PORCINE) 5,000 UNIT/ML 1 ML VIAL SUBCUT SCH ×2 (15:36→22:06)
--- NOTE | 2019-10-26 19:10 | PDOC H&P ---
History of Present Illness Admission Date/PCP: 10/26/19 12:45 CANDIDO RAJPUT MD Patient complains of: weakness, falls History of Present Illness: DIVINA CUELLAR is a 88 year old female with a past medical history of hypertension, depression, hyperlipidemia who is in good health but found herself to have generalized weakness, forgetfulness, and multiple falls over the last 3 days. During her last fall, she hit her hip and posterior scalp consciousness. This prompted her to present for evaluation. She was found to have HTN, mild tachycardia, leukocytosis, mild BRAEDEN (CR 1.31/BUN 25), and urinalysis positive for UTI. Cervical spine CT, head CT are benign. Hip x-ray shows a possible avulsion fracture of the greater trochanter. She was provided IV fluids and Rocephin. She is referred to the hospitalist service for admission and management of the above-stated complaints and findings. Past Medical History Cardiac Medical History: Reports: Hyperlipidema, Hypertension Denies: Coronary Artery Disease, Myocardial Infarction Pulmonary Medical History: Reports: Asthma, Bronchitis Denies: Chronic Obstructive Pulmonary Disease (COPD), Pneumonia EENT Medical History: Reports: None Neurological Medical History: Denies: Seizures Endocrine Medical History: Reports: None Renal/ Medical History: Reports: None Malignancy Medical History: Reports: None GI Medical History: Reports: Gastroesophageal Reflux Disease, Hiatal Hernia Musculoskeltal Medical History: Reports: Arthritis - Back Skin Medical History: Reports: None Psychiatric Medical History: Reports: Depression Traumatic Medical History: Reports: None Hematology: Denies: Anemia Infectious Medical History: Reports: None Past Surgical History Past Surgical History: Reports: Appendectomy Denies: Hysterectomy, Pacemaker Social History Information Source: Patient Lives with: Alone Smoking Status: Never Smoker Electronic Cigarette use?: No Frequency of Alcohol Use: None Hx Recreational Drug Use: No Family History Family History: Reviewed & Not Pertinent Parental Family History Reviewed: Yes Children Family History Reviewed: Yes Sibling(s) Family History Reviewed.: Yes Medication/Allergy Home Medications: Aspirin [Adult Low Dose Aspirin EC] 81 mg PO DAILY 10/26/19 Escitalopram Oxalate [Lexapro 10 mg Tablet] 10 mg PO QPM 10/26/19 Metoprolol Succinate [Toprol Xl 25 mg Tab.sr] 25 mg PO BID 10/26/19 Ranolazine [Ranexa 500 mg Tab.sr] 500 mg PO Q12 10/26/19 Rosuvastatin Calcium 5 mg PO QHS 10/26/19 Allergies/Adverse Reactions: Sulfa (Sulfonamide Antibiotics) Allergy (Verified 01/20/19 09:35) tape Allergy (Intermediate, Uncoded 01/20/19 09:35) Review of Systems Constitutional: PRESENT: fatigue, weakness. ABSENT: chills, fever(s), headache(s), weight gain, weight loss Eyes: ABSENT: visual disturbances Ears: ABSENT: hearing changes Cardiovascular: ABSENT: chest pain, dyspnea on exertion, edema, orthropnea, palpitations Respiratory: ABSENT: cough, hemoptysis Gastrointestinal: ABSENT: abdominal pain, constipation, diarrhea, hematemesis, hematochezia, nausea, vomiting Genitourinary: ABSENT: dysuria, hematuria Musculoskeletal: ABSENT: joint swelling Integumentary: ABSENT: rash, wounds Neurological: PRESENT: frequent falls. ABSENT: abnormal gait, abnormal speech, confusion, dizziness, focal weakness, syncope Psychiatric: ABSENT: anxiety, depression, homidical ideation, suicidal ideation Endocrine: ABSENT: cold intolerance, heat intolerance, polydipsia, polyuria Hematologic/Lymphatic: ABSENT: easy bleeding, easy bruising Physical Exam Vital Signs: Temp Pulse Resp BP Pulse Ox 98.0 F 88 19 173/68 H 97 10/26/19 14:39 10/26/19 14:39 10/26/19 14:39 10/26/19 14:39 10/26/19 14:39 Intake & Output 10/25/19 10/26/19 10/27/19 06:59 06:59 06:59 Intake Total 1050 Balance 1050 Weight 58.967 kg General appearance: PRESENT: no acute distress, cooperative, hard of hearing, well-developed, well-nourished Head exam: PRESENT: atraumatic, normocephalic Eye exam: PRESENT: conjunctiva pink, EOMI, PERRLA. ABSENT: scleral icterus Mouth exam: PRESENT: moist, tongue midline Respiratory exam: PRESENT: clear to auscultation vitaliy, symmetrical, unlabored. ABSENT: rales, rhonchi, wheezes Cardiovascular exam: PRESENT: RRR, +S1, +S2. ABSENT: diastolic murmur, rubs, systolic murmur Pulses: PRESENT: normal dorsalis pedis pul Vascular exam: PRESENT: normal capillary refill GI/Abdominal exam: PRESENT: normal bowel sounds, soft. ABSENT: distended, guarding, mass, organolmegaly, rebound, tenderness Rectal exam: PRESENT: deferred Gentrourinary exam: PRESENT: indwelling catheter Extremities exam: PRESENT: full ROM. ABSENT: calf tenderness, clubbing, pedal edema Neurological exam: PRESENT: alert, awake, oriented to person, oriented to place, oriented to time, oriented to situation, CN II-XII grossly intact. ABSENT: motor sensory deficit Psychiatric exam: PRESENT: appropriate affect, normal mood. ABSENT: homicidal ideation, suicidal ideation Skin exam: PRESENT: dry, intact, warm. ABSENT: cyanosis, rash Results Laboratory Results: 10/26/19 09:19 10/26/19 09:19 10/26/19 10/26/19 10/26/19 09:19 09:19 09:34 WBC 12.8 H RBC 4.51 Hgb 13.9 Hct 41.2 MCV 91 MCH 30.8 MCHC 33.8 RDW 13.9 Plt Count 222 Seg Neutrophils % 87.7 H Sodium 134.8 L Potassium 4.1 Chloride 100 Carbon Dioxide 28 Anion Gap 7 BUN 25 H Creatinine 1.31 H Est GFR ( Amer) 46 L Glucose 114 H Calcium 10.1 Total Bilirubin 0.5 AST 22 Alkaline Phosphatase 93 Total Protein 6.9 Albumin 4.2 Urine Color YELLOW Urine Appearance SLIGHTLY-CLOUDY Urine pH 6.0 Ur Specific [place] 1.014 Urine Protein NEGATIVE Urine Glucose (UA) NEGATIVE Urine Ketones 20 H Urine Blood SMALL H Urine Nitrite POSITIVE H Ur Leukocyte Esterase LARGE H Urine WBC (Auto) 80 Urine RBC (Auto) 4 10/26/19 10/26/19 09:19 09:19 Creatine Kinase 44 Troponin I < 0.012 Impressions: Head CT 10/26/19 08:10 IMPRESSION: CHRONIC CHANGES OF ATROPHY AND MICROVASCULAR ISCHEMIA. NO ACUTE PROCESS. EVIDENCE OF ACUTE STROKE: NO. Hip X-Ray 10/26/19 08:10 IMPRESSION: Possible avulsion fracture greater trochanter. Cervical Spine CT 10/26/19 08:35 IMPRESSION: CHRONIC DEGENERATIVE CHANGES. NO ACUTE FINDINGS. Assessment and Plan - Diagnosis (1) Urinary tract infection Qualifiers: Urinary tract infection type: site unspecified Hematuria presence: with hematuria Qualified Code(s): N39.0 - Urinary tract infection, site not specified; R31.9 - Hematuria, unspecified Is this a current diagnosis for this admission?: Yes Plan: Blood and urine cultures pending. Patient is admitted to the medical floor. She is empirically placed on IV Rocephin. Continue gentle IV fluids. Encourage p.o. fluids. (2) Dehydration Is this a current diagnosis for this admission?: Yes Plan: Secondary to urinary tract infection. Gentle IV fluids. Encourage p.o. fluids. Follow-up chemistry. (3) Closed avulsion fracture of greater trochanter of left femur Qualifiers: Encounter type: initial encounter Qualified Code(s): S72.112A - Displaced fracture of greater trochanter of left femur, initial encounter for closed fracture Is this a current diagnosis for this admission?: Yes Plan: Analgesics as needed. PT/OT consultation. (4) Falls Qualifiers: Encounter type: initial encounter Qualified Code(s): W19.XXXA - Unspecified fall, initial encounter Is this a current diagnosis for this admission?: Yes Plan: PT/OT consultation. Discharge planning consulted. Fall precautions. (5) Hematoma of scalp Qualifiers: Encounter type: initial encounter Qualified Code(s): S00.03XA - Contusion of scalp, initial encounter Is this a current diagnosis for this admission?: Yes Plan: Analgesics as needed. Ice pack as needed. - Time Time Spent with patient: 35 or more minutes Medications reviewed and adjusted accordingly: Yes Anticipated discharge: Home with Homehealth Within: within 48 hours
[2019-10-26] MEDS ORDERED: (PENDING PHARMACY ID) (Rosuvastatin Calcium [Rosuvastatin Calcium] 5 MG) PO SCH (22:00)
[2019-10-26] MEDS: RANOLAZINE 500 MG TAB.SR.12H PO SCH (22:01)
[2019-10-26] MEDS: METOPROLOL SUCCINATE 25 MG TAB.SR.24H PO SCH (22:02)
[2019-10-26] MEDS: ATORVASTATIN CALCIUM 10 MG TABLET PO SCH (22:02)
[2019-10-27] MEDS: NORMAL SALINE 1000 ML 1,000 ML IV PRN ×2 (00:52→13:44)
[2019-10-27 06:35] LABS: HEMATOCRIT 36.6 % (36.0-47.0); HEMOGLOBIN 12.6 g/dL (12.0-15.5); MEAN CORPUSCULAR HEMOGLOBIN 31.5 pg (27.0-33.4); MEAN CORPUSCULAR HGB CONC 34.5 g/dL (32.0-36.0); MEAN CORPUSCULAR VOLUME 91 fl (80-97); PLATELET COUNT 185 10^3/uL (150-450); RED BLOOD COUNT 4.01 10^6/uL (3.72-5.28); RED CELL DISTRIBUTION WIDTH 13.7 % (11.5-14.0); WHITE BLOOD COUNT 5.7 10^3/uL (4.0-10.5)
[2019-10-27 07:00] LABS: BLOOD UREA NITROGEN 20 mg/dL (7-20); CARBON DIOXIDE 28 mmol/L (22-30); GLUCOSE 108 mg/dL (75-110); POTASSIUM 4.2 mmol/L (3.6-5.0)
[2019-10-27 07:06] LABS: CHLORIDE 103 mmol/L (98-107)
[2019-10-27 07:14] LABS: ANION GAP 3 (5-19)
[2019-10-27] MEDS ORDERED: HEPARIN SOD (PORCINE) 5,000 UNIT/ML 1 ML VIAL ONE (09:10)
[2019-10-27] MEDS: HEPARIN SOD (PORCINE) 5,000 UNIT/ML 1 ML VIAL SUBCUT SCH ×3 (09:28→21:14)
[2019-10-27] MEDS: PANTOPRAZOLE SODIUM 20 MG TABLET.DR PO SCH (09:28)
[2019-10-27] MEDS: RANOLAZINE 500 MG TAB.SR.12H PO SCH ×2 (11:11→21:14)
[2019-10-27] MEDS: METOPROLOL SUCCINATE 25 MG TAB.SR.24H PO SCH ×2 (11:12→21:11)
[2019-10-27] MEDS: AMLODIPINE BESYLATE 5 MG TABLET PO SCH (11:12)
[2019-10-27] MEDS: ASPIRIN 81 MG TABLET, ENT COATED PO SCH (11:12)
[2019-10-27] MEDS: DOCUSATE SODIUM 100 MG CAPSULE PO SCH (11:12)
[2019-10-27] MEDS: CEFTRIAXONE 1 GM/D5W RTU 1 GM/50 ML RTUPB IV SCH (11:13)
--- NOTE | 2019-10-27 17:57 | PDOC PROGRESS REPORT ---
Subjective Progress Note for:: 10/27/19 Subjective:: DIVINA CUELLAR is a 88 year old female with a past medical history of hypertension, depression, hyperlipidemia who is in good health but found herself to have generalized weakness, forgetfulness, and multiple falls over the last 3 days and is admitted for UTI and generalized weakness. Patient was seen on afternoon rounds. She is found ambulating in her room inde pendently. She is ANO x4. She does continue to have slight confusion and forgetfulness; however, this may be related to her poor hearing. She tells me that her niece is post to drop off her hearing aids later on this evening. She tells me that she is feeling much better, continues to be slightly tired and weak compared to her baseline but otherwise feeling well. She denies fever, chills, chest pain, palpitations, dyspnea, abdominal pain, diarrhea, urinary urgency and frequency and dysuria. She does report one episode of emesis after moving upstairs; believes it may be related to motion si ckness from a lying down while being transported on stretcher. She has no other questions or concerns at this time. No concerns per nursing. Reason For Visit: URINARY TRACT INFECTION,GENERALIZED WEAKNESS,FALLS Physical Exam Vital Signs: Temp Pulse Resp BP Pulse Ox 98.6 F 76 18 161/79 H 98 10/27/19 13:56 10/27/19 13:56 10/27/19 13:56 10/27/19 13:56 10/27/19 13:56 Intake & Output 10/26/19 10/27/19 10/28/19 06:59 06:59 06:59 Intake Total 1050 1050 Balance 1050 1050 Weight 58.967 kg 58.967 kg General appearance: PRESENT: no acute distress, cooperative, hard of hearing, well-developed, well-nourished Head exam: PRESENT: atraumatic, normocephalic Eye exam: PRESENT: conjunctiva pink, EOMI, PERRLA. ABSENT: scleral icterus Mouth exam: PRESENT: moist, tongue midline Respiratory exam: PRESENT: clear to auscultation vitaliy, symmetrical, unlabored. ABSENT: rales, rhonchi, wheezes Cardiovascular exam: PRESENT: RRR, +S1, +S2. ABSENT: diastolic murmur, rubs, systolic murmur Pulses: PRESENT: normal dorsalis pedis pul Vascular exam: PRESENT: normal capillary refill GI/Abdominal exam: PRESENT: normal bowel sounds, soft. ABSENT: distended, guarding, mass, organolmegaly, rebound, tenderness Rectal exam: PRESENT: deferred Extremities exam: PRESENT: full ROM. ABSENT: calf tenderness, clubbing, pedal edema Musculoskeletal exam: PRESENT: ambulatory Neurological exam: PRESENT: alert, awake, oriented to person, oriented to place, oriented to time, oriented to situation, CN II-XII grossly intact. ABSENT: motor sensory deficit Psychiatric exam: PRESENT: appropriate affect, normal mood. ABSENT: homicidal ideation, suicidal ideation Skin exam: PRESENT: dry, intact, warm. ABSENT: cyanosis, rash Results Laboratory Results: 10/27/19 06:18 10/27/19 06:18 10/27/19 10/27/19 10/27/19 06:18 06:18 06:18 WBC 5.7 RBC 4.01 Hgb 12.6 Hct 36.6 MCV 91 MCH 31.5 MCHC 34.5 RDW 13.7 Plt Count 185 Sodium 134.4 L Potassium 4.2 Chloride 103 Carbon Dioxide 28 Anion Gap 3 L BUN 20 Creatinine 1.15 Est GFR ( Amer) 54 L Glucose 108 Calcium 9.0 TSH 2.45 10/26/19 10:58 Blood Blood Culture (PCR) - Final Streptococcus Species 10/26/19 10/26/19 09:19 09:19 Creatine Kinase 44 Troponin I < 0.012 Impressions: Head CT 10/26/19 08:10 IMPRESSION: CHRONIC CHANGES OF ATROPHY AND MICROVASCULAR ISCHEMIA. NO ACUTE PROCESS. EVIDENCE OF ACUTE STROKE: NO. Hip X-Ray 10/26/19 08:10 IMPRESSION: Possible avulsion fracture greater trochanter. Cervical Spine CT 10/26/19 08:35 IMPRESSION: CHRONIC DEGENERATIVE CHANGES. NO ACUTE FINDINGS. Assessment and Plan - Diagnosis (1) Urinary tract infection Qualifiers: Urinary tract infection type: site unspecified Hematuria presence: with hematuria Qualified Code(s): N39.0 - Urinary tract infection, site not s pecified; R31.9 - Hematuria, unspecified Is this a current diagnosis for this admission?: Yes Plan: Blood cultures revealed gram-positive cocci in chains (1 set). Urine culture gram-negative rods. Patient is admitted to the medical floor. She is empirically placed on IV Rocephin. Continue gentle IV fluids. Encourage p.o. fluids. (2) Dehydration Is this a current diagnosis for this admission?: Yes Plan: Resolved. Secondary to urinary tract infection. Gentle IV fluids. Encourage p.o. fluids. Follow-up chemistry. (3) Closed avulsion fracture of greater trochanter of left femur Qualifiers: Encounter type: initial encounter Qualified Code(s): S72.112A - Displaced fracture of greater trochanter of left femur, initial encounter for closed fracture Is this a current diagnosis for this admission?: Yes Plan: Analgesics as needed. PT/OT consultation. (4) Falls Qualifiers: Encounter type: initial encounter Qualified Code(s): W19.XXXA - Unspecified fall, initial encounter Is this a current diagnosis for this admission?: Yes Plan: PT/OT consultation. Discharge planning consulted. Fall precautions. (5) Hematoma of scalp Qualifiers: Encounter type: initial encounter Qualified Code(s): S00.03XA - Contusion of scalp, initial encounter Is this a current diagnosis for this admission?: Yes Plan: Analgesics as needed. Ice pack as needed. (6) Bacteremia Is this a current diagnosis for this admission?: Yes Plan: Blood culture reveals gram-positive cocci in chains in 1 set. Leukocytosis is resolved. She is afebrile. Currently on Rocephin for treatment of UTI; urine culture with gram-negative rods. This is likely contaminant. We will obtain repeat blood cultures tomorrow for clearance. (7) Leukocytosis Qualifiers: Leukocytosis type: unspecified Qualified Code(s): D72.829 - Elevated white blood cell count, unspecified Is this a current diagnosis for this admission?: Yes Plan: Resolved. Secondary to #1. - Time Time Spent with patient: 15-24 minutes
[2019-10-27] MEDS: ESCITALOPRAM OXALATE 10 MG TABLET PO SCH (19:03)
[2019-10-27] MEDS: ATORVASTATIN CALCIUM 10 MG TABLET PO SCH (21:11)
[2019-10-28] MEDS: NORMAL SALINE 1000 ML 1,000 ML IV PRN ×2 (04:33→18:20)
[2019-10-28] MEDS: PANTOPRAZOLE SODIUM 20 MG TABLET.DR PO SCH (05:02)
[2019-10-28] MEDS: HEPARIN SOD (PORCINE) 5,000 UNIT/ML 1 ML VIAL SUBCUT SCH ×3 (05:02→21:20)
[2019-10-28 05:29] LABS: HEMATOCRIT 35.6 % (36.0-47.0); HEMOGLOBIN 12.3 g/dL (12.0-15.5); MEAN CORPUSCULAR HEMOGLOBIN 31.3 pg (27.0-33.4); MEAN CORPUSCULAR HGB CONC 34.7 g/dL (32.0-36.0); MEAN CORPUSCULAR VOLUME 90 fl (80-97); PLATELET COUNT 180 10^3/uL (150-450); RED BLOOD COUNT 3.94 10^6/uL (3.72-5.28); RED CELL DISTRIBUTION WIDTH 14.1 % (11.5-14.0); WHITE BLOOD COUNT 6.5 10^3/uL (4.0-10.5)
[2019-10-28 06:50] LABS: BLOOD UREA NITROGEN 13 mg/dL (7-20); CALCIUM 9.1 mg/dL (8.4-10.2); CARBON DIOXIDE 27 mmol/L (22-30); GLUCOSE 99 mg/dL (75-110); POTASSIUM 3.9 mmol/L (3.6-5.0)
[2019-10-28 06:56] LABS: CHLORIDE 104 mmol/L (98-107)
[2019-10-28 07:00] LABS: ANION GAP 3 (5-19)
[2019-10-28] MEDS: ASPIRIN 81 MG TABLET, ENT COATED PO SCH (09:07)
[2019-10-28] MEDS: AMLODIPINE BESYLATE 5 MG TABLET PO SCH (09:07)
[2019-10-28] MEDS: DOCUSATE SODIUM 100 MG CAPSULE PO SCH (09:07)
[2019-10-28] MEDS: CEFTRIAXONE 1 GM/D5W RTU 1 GM/50 ML RTUPB IV SCH (09:08)
[2019-10-28] MEDS: METOPROLOL SUCCINATE 25 MG TAB.SR.24H PO SCH ×2 (09:08→21:20)
[2019-10-28] MEDS: RANOLAZINE 500 MG TAB.SR.12H PO SCH ×2 (11:42→21:19)
--- NOTE | 2019-10-28 15:09 | PDOC PROGRESS REPORT ---
Subjective Progress Note for:: 10/28/19 Subjective:: DIVINA CUELLAR is a 88 year old female with a past medical history of hypertension, depression, hyperlipidemia who is in good health but found herself to have generalized weakness, forgetfulness, and multiple falls over the last 3 days and is admitted for UTI and generalized weakness. Patient was seen on morning rounds with her daughter present. She is found res ting in bed comfortably on room air. She is A&O x4. She states she is feeling well and has no concerns today. She denies fever, chills, chest pain, palpitations, dyspnea, abdominal pain, diarrhea, vomiting, urinary urgency and frequency and dysuria. Patient has no other questions or concerns at this time. Daughter has many questions regarding [facility] versus SNF placement. We discussed that her mother was overqualified for short-term rehab (independently ambulated 300 feet with front wheel walker yesterday). I did recommend meeting with our social media editor who may be able to assist with insurance questions and planning for [facility] in the future. Discussed that patient would likely be ready for discharge to home tomorrow with home health services. Discharge planning notified of family questions. No concerns per nursing. Reason For Visit: URINARY TRACT INFECTION,GENERALIZED WEAKNESS,FALLS Physical Exam Vital Signs: Temp Pulse Resp BP Pulse Ox 97.8 F 70 16 128/47 H 98 10/28/19 10:59 10/28/19 10:59 10/28/19 10:59 10/28/19 10:59 10/28/19 10:59 Intake & Output 10/27/19 10/28/19 10/29/19 06:59 06:59 06:59 Intake Total 1050 2530 846 Output Total 1250 600 Balance 1050 1280 246 Weight 58.967 kg 58.9 kg General appearance: PRESENT: no acute distress, cooperative, hard of hearing, well-developed, well-nourished Head exam: PRESENT: atraumatic, normocephalic Eye exam: PRESENT: conjunctiva pink, EOMI, PERRLA. ABSENT: scleral icterus Mouth exam: PRESENT: moist, tongue midline Respiratory exam: PRESENT: clear to auscultation vitaliy, symmetrical, unlabored. ABSENT: rales, rhonchi, wheezes Cardiovascular exam: PRESENT: RRR, +S1, +S2. ABSENT: diastolic murmur, rubs, systolic murmur Vascular exam: PRESENT: normal capillary refill Extremities exam: PRESENT: full ROM. ABSENT: calf tenderness, clubbing, pedal edema Musculoskeletal exam: PRESENT: ambulatory Neurological exam: PRESENT: alert, awake, oriented to person, oriented to place, oriented to time, oriented to situation, CN II-XII grossly intact. ABSENT: motor sensory deficit Psychiatric exam: PRESENT: appropriate affect, normal mood. ABSENT: homicidal ideation, suicidal ideation Skin exam: PRESENT: dry, intact, warm. ABSENT: cyanosis, rash Results Laboratory Results: 10/28/19 05:17 10/28/19 05:57 10/28/19 10/28/19 05:17 05:57 WBC 6.5 RBC 3.94 Hgb 12.3 Hct 35.6 L MCV 90 MCH 31.3 MCHC 34.7 RDW 14.1 H Plt Count 180 Sodium 133.6 L Potassium 3.9 Chloride 104 Carbon Dioxide 27 Anion Gap 3 L BUN 13 Creatinine 1.05 Est GFR ( Amer) > 60 Glucose 99 Calcium 9.1 10/26/19 10:58 Blood Blood Culture (PCR) - Final Streptococcus Species 10/26/19 09:34 Catheterized Urine Urine Culture - Final Escherichia Coli 10/26/19 10/26/19 09:19 09:19 Creatine Kinase 44 Troponin I < 0.012 Impressions: Head CT 10/26/19 08:10 IMPRESSION: CHRONIC CHANGES OF ATROPHY AND MICROVASCULAR ISCHEMIA. NO ACUTE PROCESS. EVIDENCE OF ACUTE STROKE: NO. Hip X-Ray 10/26/19 08:10 IMPRESSION: Possible avulsion fracture greater trochanter. Cervical Spine CT 10/26/19 08:35 IMPRESSION: CHRONIC DEGENERATIVE CHANGES. NO ACUTE FINDINGS. Assessment and Plan - Diagnosis (1) Urinary tract infection Qualifiers: Urinary tract infection type: site unspecified Hematuria presence: with hematuria Qualified Code(s): N39.0 - Urinary tract infection, site not specified; R31.9 - Hematuria, unspecified Is this a current diagnosis for this admission?: Yes Plan: Blood cultures revealed gram-positive cocci in chains (1 set). Discussed with micro; will likely result tomorrow. Urine culture shows pansensitive E. coli Patient is admitted to the medical floor. She is empirically placed on IV Rocephin. Day #3 Encourage p.o. fluids. (2) Dehydration Is this a current diagnosis for this admission?: Yes Plan: Resolved. Secondary to urinary tract infection. Gentle IV fluids. Encourage p.o. fluids. Follow-up chemistry. (3) Closed avulsion fracture of greater trochanter of left femur Qualifiers: Encounter type: initial encounter Qualified Code(s): S72.112A - Displaced fracture of greater trochanter of left femur, initial encounter for closed fracture Is this a current diagnosis for this admission?: Yes Plan: Analgesics as needed. PT/OT consultation. (4) Falls Qualifiers: Encounter type: initial encounter Qualified Code(s): W19.XXXA - Unspecified fall, initial encounter Is this a current diagnosis for this admission?: Yes Plan: PT/OT consultation. Discharge planning consulted. Fall precautions. (5) Hematoma of scalp Qualifiers: Encounter type: initial encounter Qualified Code(s): S00.03XA - Contusion of scalp, initial encounter Is this a current diagnosis for this admission?: Yes Plan: Analgesics as needed. Ice pack as needed. (6) Bacteremia Is this a current diagnosis for this admission?: Yes Plan: Blood cultures revealed gram-positive cocci in chains (1 set). Discussed with micro; will likely result tomorrow. Leukocytosis is resolved. She is afebrile. Currently on Rocephin for treatment of UTI; urine culture shows pansensitive E. coli This is likely contaminant. Repeat blood cultures obtained for thoroughness. (7) Leukocytosis Qualifiers: Leukocytosis type: unspecified Qualified Code(s): D72.829 - Elevated white blood cell count, unspecified Is this a current diagnosis for this admission?: Yes Plan: Resolved. Secondary to #1. - Time Time Spent with patient: 15-24 minutes Medications reviewed and adjusted accordingly: Yes Anticipated discharge: Home with Homehealth Within: within 24 hours
[2019-10-28] MEDS: ESCITALOPRAM OXALATE 10 MG TABLET PO SCH (18:19)
[2019-10-28] MEDS: ATORVASTATIN CALCIUM 10 MG TABLET PO SCH (21:19)
[2019-10-29] MEDS: PANTOPRAZOLE SODIUM 20 MG TABLET.DR PO SCH (05:41)
[2019-10-29] MEDS: HEPARIN SOD (PORCINE) 5,000 UNIT/ML 1 ML VIAL SUBCUT SCH (05:41)
[2019-10-29] MEDS: NORMAL SALINE 1000 ML 1,000 ML IV PRN (05:41)
[2019-10-29] MEDS: ASPIRIN 81 MG TABLET, ENT COATED PO SCH (09:46)
[2019-10-29] MEDS: RANOLAZINE 500 MG TAB.SR.12H PO SCH (09:46)
[2019-10-29] MEDS: METOPROLOL SUCCINATE 25 MG TAB.SR.24H PO SCH (09:46)
[2019-10-29] MEDS: AMLODIPINE BESYLATE 5 MG TABLET PO SCH (09:46)
[2019-10-29] MEDS: DOCUSATE SODIUM 100 MG CAPSULE PO SCH (09:46)
[2019-10-29] MEDS: CEFTRIAXONE 1 GM/D5W RTU 1 GM/50 ML RTUPB IV SCH (09:47)
[2019-10-29 13:43] VITALS: BP 161/79
--- NOTE | 2019-10-29 15:01 | PDOC DISCHARGE SUMMARY ---
Impression - Admit/DC Date/PCP Admission Date/Primary Care Provider: 10/26/19 12:45 CANDIDO RAJPUT MD Discharge Date: 10/29/19 - Discharge Diagnosis (1) Urinary tract infection Is this a current diagnosis for this admission?: Yes (2) Dehydration Is this a current diagnosis for this admission?: Yes (3) Closed avulsion fracture of greater trochanter of left femur Is this a current diagnosis for this admission?: Yes (4) Falls Is this a current diagnosis for this admission?: Yes (5) Hematoma of scalp Is this a current diagnosis for this admission?: Yes (6) Bacteremia Is this a current diagnosis for this admission?: Yes (7) Leukocytosis Is this a current diagnosis for this admission?: Yes - Additional Information Discharge Diet: Cardiac Discharge Activity: Activity As Tolerated, Balance Activity w/Rest, Slowly Increase Activity Referrals: ESTUARDO RODRIGEZ MD [NO LOCAL MD] - (please call dr rodrigez's office on friday for a follow up appt) Prescriptions: Cefuroxime Axetil [Ceftin 250 mg Tablet] 1 tab PO BID #6 tablet Amlodipine Besylate [Norvasc 5 mg Tablet] 5 mg PO QHS #30 tablet Home Medications: Aspirin [Adult Low Dose Aspirin EC] 81 mg PO DAILY 10/26/19 Escitalopram Oxalate [Lexapro 10 mg Tablet] 10 mg PO QPM 10/26/19 Metoprolol Succinate [Toprol Xl 25 mg Tab.sr] 25 mg PO BID 10/26/19 Ranolazine [Ranexa 500 mg Tab.sr] 500 mg PO Q12 10/26/19 Rosuvastatin Calcium 5 mg PO QHS 10/26/19 Acetaminophen [Tylenol 325 mg Tablet] 650 mg PO Q4HP PRN tablet 10/29/19 Amlodipine Besylate [Norvasc 5 mg Tablet] 5 mg PO QHS #30 tablet 10/29/19 Cefuroxime Axetil [Ceftin 250 mg Tablet] 1 tab PO BID #6 tablet 10/29/19 Docusate Sodium [Colace 100 mg Capsule] 100 mg PO DAILY capsule 10/29/19 History of Present Illiness History of Present Illness: DIVINA CUELLAR is a 88 year old female with a past medical history of hypertension, depression, hyperlipidemia who is in good health but found herself to have generalized weakness, forgetfulness, and multiple falls over the last 3 days. During her last fall, she hit her hip and posterior scalp consciousness. This prompted her to present for evaluation. She was found to have HTN, mild tachycardia, leukocytosis, mild BRAEDEN (CR 1.31/BUN 25), and urinalysis positive for UTI. Cervical spine CT, head CT are benign. Hip x-ray shows a possible avulsion fracture of the greater trochanter. She was provided IV fluids and Rocephin. She is referred to the hospitalist service for admission and management of the above-stated complaints and findings. Hospital Course Hospital Course: (1) Urinary tract infection Blood cultures revealed gram-positive cocci in chains (1 set). Discussed with micro; will likely result tomorrow. Urine culture shows pansensitive E. coli Patient is admitted to the medical floor. She is empirically placed on IV Rocephin. Received 4 days of therapy. Transitioned to p.o. Ceftin for completion of antibiotic course. Encourage p.o. fluids. (2) Dehydration Resolved. Secondary to urinary tract infection. Recieved gentle IV fluids. Encourage p.o. fluids. (3) Closed avulsion fracture of greater trochanter of left femur Analgesics as needed. PT/OT consultation obtained. Continue home health PT. (4) Falls As above. (5) Hematoma of scalp Analgesics as needed. Ice pack as needed. (6) Bacteremia Blood cultures revealed gram-positive cocci in chains (1 set). This is likely contaminant. Leukocytosis is resolved. She is afebrile. Currently on Rocephin for treatment of UTI; urine culture shows pansensitive E. coli Repeat blood cultures are negative at 24 hours. (7) Leukocytosis Resolved. Secondary to #1. Physical Exam Vital Signs: Temp Pulse Resp BP Pulse Ox 97.2 F 74 16 161/79 H 99 10/29/19 13:40 10/29/19 13:40 10/29/19 13:40 10/29/19 13:40 10/29/19 13:40 Intake & Output 10/28/19 10/29/19 10/30/19 06:59 06:59 06:59 Intake Total 2530 2987 50 Output Total 1250 1775 Balance 1280 1212 50 Weight 58.9 kg 58.9 kg General appearance: PRESENT: no acute distress, cooperative, hard of hearing, well-developed, well-nourished Head exam: PRESENT: atraumatic, normocephalic Eye exam: PRESENT: conjunctiva pink, EOMI, PERRLA. ABSENT: scleral icterus Mouth exam: PRESENT: moist, tongue midline Respiratory exam: PRESENT: clear to auscultation vitaliy, symmetrical, unlabored. ABSENT: rales, rhonchi, wheezes Cardiovascular exam: PRESENT: RRR. ABSENT: diastolic murmur, rubs, systolic murmur Pulses: PRESENT: normal dorsalis pedis pul Vascular exam: PRESENT: normal capillary refill Extremities exam: PRESENT: full ROM. ABSENT: calf tenderness, clubbing, pedal edema Musculoskeletal exam: PRESENT: ambulatory - w/FWW Neurological exam: PRESENT: alert, awake, oriented to person, oriented to place, oriented to time, oriented to situation, CN II-XII grossly intact. ABSENT: motor sensory deficit Psychiatric exam: PRESENT: appropriate affect, normal mood. ABSENT: homicidal ideation, suicidal ideation Skin exam: PRESENT: dry, intact, warm. ABSENT: cyanosis, rash Results Laboratory Results: WBC 6.5 10^3/uL (4.0-10.5) 10/28/19 05:17 RBC 3.94 10^6/uL (3.72-5.28) 10/28/19 05:17 Hgb 12.3 g/dL (12.0-15.5) 10/28/19 05:17 Hct 35.6 % (36.0-47.0) L 10/28/19 05:17 MCV 90 fl (80-97) 10/28/19 05:17 MCH 31.3 pg (27.0-33.4) 10/28/19 05:17 MCHC 34.7 g/dL (32.0-36.0) 10/28/19 05:17 RDW 14.1 % (11.5-14.0) H 10/28/19 05:17 Plt Count 180 10^3/uL (150-450) 10/28/19 05:17 Lymph % (Auto) 7.6 % (13-45) L 10/26/19 09:19 [place] % (Auto) 3.9 % (3-13) 10/26/19 09:19 Eos % (Auto) 0.2 % (0-6) 10/26/19 09:19 Baso % (Auto) 0.6 % (0-2) 10/26/19 09:19 Absolute Neuts (auto) 11.3 10^3/uL (1.7-8.2) H 10/26/19 09:19 Absolute Lymphs (auto) 1.0 10^3/uL (0.5-4.7) 10/26/19 09:19 Absolute Monos (auto) 0.5 10^3/uL (0.1-1.4) 10/26/19 09:19 Absolute Eos (auto) 0.0 10^3/uL (0.0-0.6) 10/26/19 09:19 Absolute Basos (auto) 0.1 10^3/uL (0.0-0.2) 10/26/19 09:19 Seg Neutrophils % 87.7 % (42-78) H 10/26/19 09:19 Sodium 133.6 mmol/L (137-145) L 10/28/19 05:57 Potassium 3.9 mmol/L (3.6-5.0) 10/28/19 05:57 Chloride 104 mmol/L (98-107) 10/28/19 05:57 Carbon Dioxide 27 mmol/L (22-30) 10/28/19 05:57 Anion Gap 3 (5-19) L 10/28/19 05:57 BUN 13 mg/dL (7-20) 10/28/19 05:57 Creatinine 1.05 mg/dL (0.52-1.25) 10/28/19 05:57 Est GFR ( Amer) > 60 (>60) 10/28/19 05:57 Est GFR (MDRD) Non-Af 50 (>60) L 10/28/19 05:57 Glucose 99 mg/dL (75-110) 10/28/19 05:57 Calcium 9.1 mg/dL (8.4-10.2) 10/28/19 05:57 Total Bilirubin 0.5 mg/dL (0.2-1.3) 10/26/19 09:19 Direct Bilirubin 0.0 mg/dL (0.0-0.4) 10/26/19 09:19 Neonat Total Bilirubin Not Reportable 10/26/19 09:19 Neonat Direct Bilirubin Not Reportable 10/26/19 09:19 Neonat Indirect Bili Not Reportable 10/26/19 09:19 AST 22 U/L (14-36) 10/26/19 09:19 ALT 10 U/L (<35) 10/26/19 09:19 Alkaline Phosphatase 93 U/L (38-126) 10/26/19 09:19 Creatine Kinase 44 U/L (30-135) 10/26/19 09:19 Troponin I < 0.012 ng/mL 10/26/19 09:19 Total Protein 6.9 g/dL (6.3-8.2) 10/26/19 09:19 Albumin 4.2 g/dL (3.5-5.0) 10/26/19 09:19 TSH 2.45 uIU/mL (0.47-4.68) 10/27/19 06:18 Urine Color YELLOW 10/26/19 09:34 Urine Appearance SLIGHTLY-CLOUDY 10/26/19 09:34 Urine pH 6.0 (5.0-9.0) 10/26/19 09:34 Ur Specific [place] 1.014 10/26/19 09:34 Urine Protein NEGATIVE mg/dL (NEGATIVE) 10/26/19 09:34 Urine Glucose (UA) NEGATIVE mg/dL (NEGATIVE) 10/26/19 09:34 Urine Ketones 20 mg/dL (NEGATIVE) H 10/26/19 09:34 Urine Blood SMALL (NEGATIVE) H 10/26/19 09:34 Urine Nitrite POSITIVE (NEGATIVE) H 10/26/19 09:34 Urine Bilirubin NEGATIVE (NEGATIVE) 10/26/19 09:34 Urine Urobilinogen NEGATIVE mg/dL (<2.0) 10/26/19 09:34 Ur Leukocyte Esterase LARGE (NEGATIVE) H 10/26/19 09:34 Urine WBC (Auto) 80 /HPF 10/26/19 09:34 Urine RBC (Auto) 4 /HPF 10/26/19 09:34 Urine Bacteria (Auto) 2+ /HPF 10/26/19 09:34 Squamous Epi Cells Auto 1 /HPF 10/26/19 09:34 Urine Mucus (Auto) RARE /LPF 10/26/19 09:34 Urine Ascorbic Acid NEGATIVE (NEGATIVE) 10/26/19 09:34 10/26/19 09:19 Troponin I < 0.012 Impressions: Head CT 10/26/19 08:10 IMPRESSION: CHRONIC CHANGES OF ATROPHY AND MICROVASCULAR ISCHEMIA. NO ACUTE PROCESS. EVIDENCE OF ACUTE STROKE: NO. Hip X-Ray 10/26/19 08:10 IMPRESSION: Possible avulsion fracture greater trochanter. Cervical Spine CT 10/26/19 08:35 IMPRESSION: CHRONIC DEGENERATIVE CHANGES. NO ACUTE FINDINGS. Plan Plan of Treatment: Patient is discharged home, into the care of family members, with arrangements made for home health services. She is advised to follow-up with her primary care provider within 1 week. Continue efforts to find LONGTERM placement with your PCP. Complete full course of antibiotics. Drink plenty of fluids. Change positions slowly. Return to the emergency department as needed for concerning symptoms. Time Spent: Greater than 30 Minutes Stroke Is this a Stroke Patient?: No Acute Heart Failure - Is this a Heart Failure Patient?: No
== END 2019-10-29 14:00 | disposition home or self-care (01) | DRG 689 ==
LOC: ER 07:41 → EH 12:45 → 4N 10-27 12:43
PROVIDERS: ADMIT Internal Medicine; ATTEND Registered Nurse
DX: N39.0 Urinary tract infection, site not specified (principal); S72.112A Displaced fracture of greater trochanter of left femur, initial encounter for closed fracture; R78.81 Bacteremia; N17.9 Acute kidney failure, unspecified; E86.0 Dehydration; W18.30XA Fall on same level, unspecified, initial encounter; I10 Essential (primary) hypertension; J45.909 Unspecified asthma, uncomplicated; K21.9 Gastro-esophageal reflux disease without esophagitis; M46.90 Unspecified inflammatory spondylopathy, site unspecified; S00.03XA Contusion of scalp, initial encounter; I44.0 Atrioventricular block, first degree; F32.9 Major depressive disorder, single episode, unspecified; E78.5 Hyperlipidemia, unspecified; R00.0 Tachycardia, unspecified; B96.20 Unspecified Escherichia coli [E. coli] as the cause of diseases classified elsewhere; H91.90 Unspecified hearing loss, unspecified ear; K44.9 Diaphragmatic hernia without obstruction or gangrene; R31.9 Hematuria, unspecified; Z88.2 Allergy status to sulfonamides; Z91.048 Other nonmedicinal substance allergy status; Z79.82 Long term (current) use of aspirin; Z95.5 Presence of coronary angioplasty implant and graft; Z79.899 Other long term (current) drug therapy
CPT/HCPCS: 36415; 70450; 72125; 80048; 80053; 81001; 82550; 84443; 84484; 85025; 85027; 87040; 87077; 87086; 87088; 87150; 87186; 93005; 93010; 96365; 99285; J0696; J1644; J3490; J7030